=== PATIENT | female | born 1965 | race Caucasian/White ===

== ENCOUNTER 2018-01-31 13:57 | Emergency (ER) | payer MEDICAID, SELFPAY ==
[2018-01-31] VITALS (8 sets, daily range): BP systolic 142–150; BP diastolic 79–93; PULSE 98–108; RESP 16–24; TEMP 36.9; O2SAT 88–97; BMI 26.2
[2018-01-31] MEDS: Ipratropium/Albuterol Sulfate 3 ML AMPUL.NEB INHALATION (14:14)
[2018-01-31] MEDS: Albuterol 2.5 MG/3 ML VIAL.NEB. INHALATION ×3 (14:14→14:25)
[2018-01-31] MEDS: predniSONE 20 MG Tablet 60 MG PO (14:44)
--- NOTE | 2018-01-31 15:03 | RAD_ITS ---
STUDY: X-RAY CHEST REASON FOR EXAM: Female, 52 years old. Cough. Asthma. TECHNIQUE: PA and lateral views of the chest. COMPARISON: Comparison is made with prior study dated April 06, 2017. FINDINGS: EKG electrodes are seen. Hyperinflation. The lungs are clear. There is no demonstrated pleural abnormality. Normal size heart. Normal mediastinum and brandy. Normal visualized pulmonary arteries. Normal visualized aortic arch and descending thoracic aorta. There are degenerative changes of the visualized thoracic spine. Normal visualized ribs, clavicles, and shoulders. There is no demonstrated abnormality of the visualized soft tissue structures of the upper abdomen. RAD/Chest PA and Lateral IMPRESSION: Hyperinflation. The lungs are clear. Electronically Signed: Tobias Ramon MD at 15:26 EDT Tel [phone], Service support ,
--- NOTE | 2018-01-31 15:03 | EKG12_ITS ---
Test Reason : SOB Blood Pressure : / mmHG Vent. Rate : 100 BPM Atrial Rate : 100 BPM P-R Int : 144 ms QRS Dur : 082 ms QT Int : 350 ms P-R-T Axes : 079 037 064 degrees QTc Int : 451 ms Normal sinus rhythm Nonspecific ST and T wave abnormality Abnormal ECG Confirmed by MONET ECHEVARRIA ([id number]), editorial writer MARBELLA ENGLISH ([id number]) on 02/11/2018 6:31:58 PM Referred By: BRADEN Confirmed By:MONET ECHEVARRIA
--- NOTE | 2018-01-31 15:55 | ED.DCSUM_ITS ---
- ER Visit Summary Date of Service: 01/31/18 Chief Complaint: Shortness of breath History of Present Illness: The patient is a 52 F with a history of asthma. She is a smoker. Patient had waxing and waning shortness of breath for the past 3 days. This feels that her previous asthma flares. She does report cough and had slight pink tinged sputum yesterday that is now clear today. She has not had fever. She states her chest feels tight as if her lungs are tight. Physical Examination: Blood pressure is 144/84, temperature 98.4, heart rate 104 , respiratory rate 22, pulse ox 88% on room air. The time of my exam she is 92 % on 2 L nasal cannula. Head neck examination is grossly unremarkable. Heart is regular rate and rhythm. No lung sounds revealed decreased air movement throughout. Abdomen is soft nontender. Lower extremity examination was no calf tenderness or edema. Test Results: View chest x-ray reveals hyperinflation with no focal infiltrate. EKG is sinus at [address] change. Emergency Department Course and Treatment: She was given p.o. prednisone along with a cycle of aerosols. On repeat evaluation she is improved air movement throughout. She is taken off of her oxygen. Patient is ambulated down the more. Oxygen saturations maintained between 90 and 94%. She feels significantly improved. She be given a prednisone taper for home and a prescription for a new albuterol MDI as she states hers is almost empty. She still has plenty of albuterol solution for her nebulizer. Treatment Plan: [] Disposition: Discharge Impression: Asthma exacerbation This note was generated with [employer] dictation software. It may contain incorrect words, spelling, and punctuation that were not noted in review of the chart prior to signing ED Disposition - Plan for ED Patient: Chief Complaint: Asthma Referrals: Abdifatah Awad MD [Primary Care Provider] -
--- NOTE | 2018-01-31 16:17 | ED.DEP ---
ED Disposition - Plan for ED Patient: Disposition: Home or Assisted Living Chief Complaint: Asthma Instructions: ED Reactive Airway Disease Prescriptions: Albuterol Inhaler [Ventolin Hfa] 1 - 2 puff INHALATION Q4H PRN PRN #1 inhaler PRN Reason: Wheezing Prednisone 10 mg PO UD #33 tablet Referrals: Abdifatah Awad MD [Primary Care Provider] - 5-7 Days
--- NOTE | 2018-01-31 16:29 | ED.RN ---
THIS NURSE REVIEWED D/C INSTRUCTIONS WITH PT. PT VERBALIZED UNDERSTANDING OF INSTRUCTIONS. PT DENIES FURTHER NEEDS OR QUESTIONS AT THIS TIME. PT AMBULATES FROM ROOM ON OWN WITHOUT ASSISTANCE FROM STAFF
== END 2018-01-31 16:30 | disposition home or self-care (01) ==
PROVIDERS: Emergency Provider Emergency Medicine; Family Provider Family Medicine; PCP Family Medicine
DX: J45.901 Unspecified asthma with (acute) exacerbation (principal); F17.200 Nicotine dependence, unspecified, uncomplicated; F41.9 Anxiety disorder, unspecified; Z87.442 Personal history of urinary calculi; Z79.51 Long term (current) use of inhaled steroids; Z79.899 Other long term (current) drug therapy
CPT/HCPCS: 71046; 93005; 94640; 99284

== ENCOUNTER 2018-05-07 15:58 | Emergency (ER) | payer MEDICAID, SELFPAY ==
[2018-05-07 15:59] VITALS: BP 141/96; PULSE 85; RESP 18; TEMP 37.1; O2SAT 98; BMI 23.9
[2018-05-07] MEDS: LORazepam 1 MG Tablet PO (18:50)
--- NOTE | 2018-05-07 18:53 | ED.DCSUM_ITS ---
- ER Visit Summary Date of Service: 05/07/18 Chief Complaint: Panic attack History of Present Illness: The patient is a 52 F history of anxiety on both Xanax and Paxil. Patient is trying to wean her Xanax. Today had a panic attack. Physical Examination: Well-appearing middle-age female sitting in a hole here with her family. Vital signs are stable afebrile. Pulse ox 90% on room air no signs of hypoxia. No distress. H EENT exam unremarkable. Neck nontender. Lungs clear to auscultation bilaterally. Heart regular rate rhythm rate about 80 no murmurs. Abdomen is soft and nontender normal bowel sounds no peritoneal signs. Moving all 4 extremities. Neurovascularly intact. Calves nontender no edema. Neurologically awake alert no focal motor deficits. Test Results: None Emergency Department Course and Treatment: Treated with p.o. Ativan. Treatment Plan: Repeat exam doing well. Will be discharged to home. Continue current meds. Disposition: Discharge Impression: Acute panic attack History of anxiety This note was generated with [employer] dictation software. It may contain incorrect words, spelling, and punctuation that were not noted in review of the chart prior to signing ED Disposition - Plan for ED Patient: Chief Complaint: Anxiety Referrals: Abdifatah Awad MD [Primary Care Provider] -
--- NOTE | 2018-05-07 18:53 | ED.DEP ---
ED Disposition - Plan for ED Patient: Disposition: Home or Assisted Living Chief Complaint: Anxiety Instructions: ED Panic Attack Referrals: Abdifatah Awad MD [Primary Care Provider] - 1-2 Days if not improving
[2018-05-07 20:41] VITALS: BP 124/79; PULSE 83; RESP 16; O2SAT 100
--- NOTE | 2018-05-07 20:41 | ED.RN ---
THIS NURSE REVIEWED D/C INSTRUCTIONS WITH PT. PT VERBALIZED UNDERSTANDING OF INSTRUCTIONS. PT DENIES FURTHER NEEDS OR QUESTIONS AT THIS TIME. PT AMBULATES FROM DEPARTMENT ON OWN WITHOUT ASSISTANCE FROM STAFF
== END 2018-05-07 20:42 | disposition home or self-care (01) ==
PROVIDERS: Emergency Provider Emergency Medicine; Family Provider Family Medicine; PCP Family Medicine
DX: F41.0 Panic disorder [episodic paroxysmal anxiety] (principal); F41.9 Anxiety disorder, unspecified; Z72.0 Tobacco use; Z87.442 Personal history of urinary calculi; Z79.899 Other long term (current) drug therapy
CPT/HCPCS: 99282

== ENCOUNTER 2018-10-06 18:18 | Emergency (ER) | payer MEDICAID, SELFPAY ==
[2018-10-06 18:19] VITALS: BP 153/92; PULSE 116; RESP 18; TEMP 37.3; O2SAT 97; BMI 23.0
[2018-10-06 18:44] VITALS: O2SAT 99
--- NOTE | 2018-10-06 18:50 | RAD_ITS ---
STUDY: X-RAY CHEST REASON FOR EXAM: Female, 52 years old. Fever. TECHNIQUE: PA and lateral views of the chest. COMPARISON: January 31, 2018 FINDINGS: There is no new focal consolidation. Normal size heart. Normal mediastinum and brandy. Normal visualized pulmonary arteries. Normal visualized aortic arch and descending thoracic aorta. Normal visualized thoracic spine. Normal visualized ribs, clavicles, and shoulders. There is no demonstrated abnormality of the visualized soft tissue structures of the upper abdomen. RAD/Chest PA and Lateral IMPRESSION: No acute cardiopulmonary process. Electronically Signed: Catia Tellez MD at 19:48 EST Tel , Service support ,
--- NOTE | 2018-10-06 19:28 | ED.DCSUM_ITS ---
- ER Visit Summary Date of Service: 10/06/18 Chief Complaint: Cough History of Present Illness: The patient is a 52 F presenting with cough x 3 weeks. Patient states that she went to urgent care 1.5-2 weeks ago and was treated with multiple medications. She states she was given an inhaler, antibiotic, steroids, cough medicine. She states her symptoms started to improve. She states yesterday she started having worsening cough again. She has had subjective fever. She has had a dry cough. She denies other complaints. Physical Examination: Vitals are stable. Patient is afebrile. Alert no acute distress. HEENT exam is unremarkable. Neck is supple. Lungs are clear and equal bilaterally. Heart is regular rate and rhythm. Abdomen is soft nontender nondistended. Extremities are unremarkable. Skin is warm and dry. No focal neurologic deficit. Remainder of exam is unremarkable. Emergency Department Course and Treatment: Chest x-ray shows no acute process. She was given a prescription for Tessalon Perles. Advised to follow-up with her primary care physician. Advised return to ED for worsening complaints. Disposition: Discharge home Impression: Bronchitis This note was generated with [employer] dictation software. It may contain incorrect words, spelling, and punctuation that were not noted in review of the chart prior to signing ED Disposition - Plan for ED Patient: Disposition: Home or Assisted Living Instructions: ED Upper Resp Infec No Abx Tx Prescriptions: Benzonatate [Tessalon Perle] 200 mg PO TID PRN PRN #20 capsule PRN Reason: Cough Referrals: Abdifatah Awad MD [Primary Care Provider] -
[2018-10-06 20:56] VITALS: PULSE 90; RESP 15; O2SAT 96
== END 2018-10-06 20:57 | disposition home or self-care (01) ==
PROVIDERS: Emergency Provider Emergency Medicine; Family Provider Family Medicine; PCP Family Medicine
DX: J40 Bronchitis, not specified as acute or chronic (principal); F32.9 Major depressive disorder, single episode, unspecified; Z72.0 Tobacco use; Z79.51 Long term (current) use of inhaled steroids; Z79.52 Long term (current) use of systemic steroids; Z79.899 Other long term (current) drug therapy
CPT/HCPCS: 71046; 99282

== ENCOUNTER 2019-02-07 21:23 | Emergency (ER) | payer MEDICAID, SELFPAY ==
[2019-02-07 21:23] VITALS: BP 151/79; PULSE 129; RESP 24; TEMP 36.9; O2SAT 92; BMI 22.4
[2019-02-07 21:35] VITALS: PULSE 115; RESP 16
[2019-02-07] MEDS: Ipratropium/Albuterol Sulfate 3 ML AMPUL.NEB INHALATION (21:35)
[2019-02-07 21:55] VITALS: PULSE 116; RESP 20; O2SAT 95
--- NOTE | 2019-02-07 22:25 | RAD_ITS ---
STUDY: X-RAY CHEST REASON FOR EXAM: Female, 53 years old. Asthma attack, cough, shortness of breath TECHNIQUE: AP and lateral views of the chest. COMPARISON: 10/06/2018. 01/31/2018. FINDINGS: Stable hyperinflation and left perihilar calcified granuloma. Mild interstitial prominence. There is no demonstrated pleural abnormality. Normal size heart. Normal mediastinum and brandy. Normal visualized pulmonary arteries. Normal visualized aortic arch and descending thoracic aorta. Normal visualized thoracic spine. Normal visualized ribs, clavicles, and shoulders. There is no demonstrated abnormality of the visualized soft tissue structures of the upper abdomen. RAD/Chest PA and Lateral IMPRESSION: Stable hyperinflation. Possible mild interstitial/bronchial inflammation. No pulmonary edema, congestive heart failure or confluent pneumonia. Electronically Signed: Karen Washington MD at 23:11 EDT , Service support ,
--- NOTE | 2019-02-07 22:26 | ED.VIS.DYS ---
History of Present Illness Chief Complaint: Asthma Informant: Patient Onset: Today Activity at onset: - - grad onset Timing: Continuous Quality: Wheezing Current Severity: Moderate Maximum Severity: Moderate Worsened by: Coughing, Exertion Relieved by: Albuterol Associated Symptoms: Clear sputum. Negative for: Ear pain, Fever Chest Pain: Tightness Narrative: Feels like it has been flaring up. Roommate has had a cold, feels like she is getting it this morning, along with worsening wheezing throughout the day. Her albuterol inhaler was helping a little bit only very temporarily. Making her feel anxious. - Past Medical History (1) Asthma Status: Chronic Past Medical History - Allergies and Home Meds Allergies/Adverse Reactions: Allergies chlorpheniramine maleate [From Chlor-Trimeton] Allergy (Verified 10/06/18 18:19) Rash morphine Allergy (Verified 10/06/18 18:19) Itching strawberry Adverse Reaction (Verified 10/06/18 18:19) Rash Primary Care Physician: Abdifatah Awad MD [Primary Care Provider] - Lives: Roommate Smoking Status: Current every day smoker Review of Systems General: Denies: Chills, Fever Eyes: Denies: Visual changes - bilaterally, Diplopia ENT: Reports: Rhinorrhea. Denies: Bilateral ear pain, Sore throat Cardiovascular: Reports: Chest pain. Denies: Palpitations Respiratory: Reports: Dyspnea, Cough, Sputum, Dyspnea on exertion Gastrointestinal: Denies: Abdominal pain, Nausea, Vomiting, Diarrhea Musculoskeletal: Denies: Swelling, Extremity Pain Skin: Denies: Rash, Wounds Neurological: Denies: Weakness, Numbness Psych: Reports: Anxiety. Denies: Suicidal thoughts Physical Exam Vital Signs/Narrative: Vital Signs Temp Pulse Resp BP Pulse Ox 02/07/19 21:55 116 H 20 H 95 02/07/19 21:35 115 H 16 02/07/19 21:23 98.5 F 129 H 24 H 151/79 H 92 Inital Vital Signs reviewed: Yes General: Well nourished, Well developed, Acute Distress - Mild, respiratory. Speaking in 10 worsens this. Head: Normocephalic, Atraumatic Eyes: Perrl, EOMI ENT: Moist mucous membranes, No rhinorrhea Neck: Supple, Nontender Cardiovascular: Regular rate, Regular rhythm, No murmurs, Tachycardia Respiratory: Chest nontender, Wheezing - Slight, and expiratory Abdomen: Soft, Nontender, Nondistended, Normal bowel sounds Extremities: Nontender, No edema Skin: Normal color, No rash, No Trauma Neurological: Alert, Oriented x3, Cranial nerves II-XII grossly intact, Normal Strength, Normal Sensation, Normal Gait Psychological: Normal Mood, - - Anxious Diagnostic/Tx/Re-eval Chest X-Ray - ED: 2 View, Read by ED Physician, Read by Radiologist, Normal, Heart, Lungs, Mediastinum, Bony Structures, No Acute Disease Treatment - Dyspnea: Albuterol, Atrovent Repeat Evaluation: Improved - Medical Decision Making After a DuoNeb treatment, patient was not feeling that much better and was feeling anxious. She was given a couple more albuterol's and now is feeling much better. On reevaluation she still has inspiratory wheezes that are actually more prominent than they were before, indicating that she was pretty tight. She was offered more treatments but she declines and feels much better and wants to go home. She was given an injection of Kenalog 40 mg, she will not need a prescription for prednisone. Encouraged to return if worse. She is comfortable with the plan. ED Disposition - Plan for ED Patient: Disposition: Home or Assisted Living Diagnosis: Acute asthma exacerbation Instructions: ED Bronchitis Asthmatic, Triamcinolone Hexacetonide Suspension for injection Referrals: Abdifatah Awad MD [Primary Care Provider] - 3-5 Days if not improving
[2019-02-07] MEDS: Albuterol 2.5 MG/3 ML VIAL.NEB. INHALATION ×2 (22:34→22:35)
[2019-02-07 22:36] VITALS: PULSE 122; RESP 16
[2019-02-07] MEDS: Triamcinolone Acetonide 40 MG/ML Vial IM (23:18)
[2019-02-07 23:19] VITALS: PULSE 114; RESP 20; O2SAT 94
[2019-02-08 00:20] VITALS: BP 170/84; PULSE 117; RESP 18; O2SAT 94
== END 2019-02-08 00:21 | disposition home or self-care (01) ==
PROVIDERS: Emergency Provider Emergency Medicine; Family Provider Family Medicine; PCP Family Medicine
DX: J45.901 Unspecified asthma with (acute) exacerbation (principal); F17.200 Nicotine dependence, unspecified, uncomplicated; Z79.51 Long term (current) use of inhaled steroids
CPT/HCPCS: 71046; 94640; 96372; 99282

== ENCOUNTER 2019-04-03 17:48 | Emergency (ER) | payer MEDICAID, SELFPAY ==
[2019-04-03 17:49] VITALS: BP 161/93; PULSE 106; RESP 16; TEMP 36.9; O2SAT 97; BMI 20.6
--- NOTE | 2019-04-03 18:01 | ED.VISSUMM ---
- ER Visit Summary Date of Service: 04/03/19 Chief Complaint: Bilateral flank pain History of Present Illness: The patient is a 53 F presenting with bilateral flank pain. Patient states this started yesterday. She states she has a history of kidney stones and this feels similar. She has left greater than right low back pain. She noticed blood in her urine today. She states that she is also going through menopause and has had vaginal bleeding for the past month. She denies syncope. She denies chest pain or shortness of breath. Denies fever. Denies other complaints. Physical Examination: Vitals are stable. Patient is afebrile. Alert no acute distress. HEENT exam is unremarkable. Neck is supple. Lungs are clear and equal bilaterally. Heart is regular rate and rhythm. Abdomen is soft nontender nondistended. No guarding or rebound Back: Left CVA tenderness Extremities are unremarkable. Skin is warm and dry. No rash Remainder of exam is unremarkable. Emergency Department Course and Treatment: Patient was given IV Zofran, Toradol. CBC, chemistries unremarkable other than potassium 3.1. CT flank shows several nonobstructing left renal calculi measuring up to 7 mm. There is no evidence of hydronephrosis, hydroureter, or ureterolithiasis. Bilateral tubal ligation clips are noted. There are calcified plaques of the abdominal aorta. There are degenerative changes with disc space narrowing of the spine at the L5-S1 level. There is no evidence of free intra-abdominal or intrapelvic air, fluid, or inflammatory process. On reevaluation, patient is resting comfortably. She is advised to follow with primary care physician and [facility]. Advised return to ED for worsening complaints. Disposition: Discharge home Impression: Bilateral flank pain This note was generated with [employer] dictation software. It may contain incorrect words, spelling, and punctuation that were not noted in review of the chart prior to signing ED Disposition - Plan for ED Patient: Instructions: FLANK PAIN, Uncertain Cause Prescriptions: Naproxen [Naprosyn] 500 mg PO BID PRN #20 tab Prescription Printed Referrals: Aspen Mak MD [STAFF PHYSICIAN] - Abdifatah Awad MD [Primary Care Provider] -
[2019-04-03] MEDS: Ketorolac 30 MG/ML Syringe IV (18:18)
[2019-04-03] MEDS: 0.9% Normal Saline 1,000 ML 250 ML IV (18:18)
[2019-04-03] MEDS: Ondansetron 4 MG/2 ML Vial IV (18:18)
[2019-04-03 18:22] LABS: Absolute Lymphocyte Count 2.35 X10^3/uL (0.83-4.51); Absolute Neutrophil Count 7.3 X10^3/uL (2.0-7.7); Basophil# 0.05 X10^3/uL; Basophil% 0.5 % (0-1); Eosinophil# 0.08 X10^3/uL; Eosinophils% 0.8 % (0-5); Hematocrit 42.7 % (37-47); Hemoglobin 14.2 g/dL (12.0-15.0); Lymphocyte # 2.35 X10^3/ul (4.0); Lymphocyte % 22.3 % (19-41); Mean Corp Hgb Conc 33.3 g/dL (32-36); Mean Corpuscular Volume 87.1 fL (81-99); Mean Platelet Vol. 8.7 fl (6.2-12.0); Monocyte# 0.72 X10^3/uL; Monocyte% 6.8 % (0-10); NRBC Flagged by Analyzer 0 % (0-5); Neutrophil # 7.28 X10^3/uL (2.7-7.7); Neutrophil % 69.2 % (47-70); Platelet Count 347 K/mm3 (150-450); RBC Distribution Width CV 14.2 % (11.6-14.6); RBC Distribution Width SD 45.4 fl (35.1-43.9); White Blood Count 10.5 K/mm3 (4.4-11.0)
[2019-04-03 18:38] LABS: BUN 18 mg/dL (7-18); Calcium,Total 9.4 mg/dL (8.5-10.1); Chloride 105 mmol/L (98-107); EST Glomerular Filtration Rate 70 mL/min (>60); Est Glom Filt Rate - Afr Amer 85 mL/min (>60); Estimated Creatinine Clearance 63.63 ml/min; Glucose 104 mg/dL (74-106); Potassium 3.1 mmol/L (3.5-5.1); Sodium Level 138 mmol/L (136-145)
[2019-04-03 18:39] LABS: Anion Gap 6 (5-15)
[2019-04-03 18:54] LABS: Bacteria 0 SEEN /hpf (None Seen); Mucous, Urine 0 SEEN /hpf (<or=2+); Red Blood Cells-Urine 0 SEEN /hpf (0-5)
--- NOTE | 2019-04-03 18:56 | CT_ITS ---
STUDY: CT ABDOMEN AND PELVIS WITHOUT CONTRAST REASON FOR EXAM: Female, 53 years old. Right flank pain RADIATION DOSAGE (If Supplied By Facility): CTDIvol = ( 6.04 ) mGy, DLP = ( 264.24 ) mGycm TECHNIQUE: Transaxial images were obtained from the dome of the diaphragm to the symphysis pubis without oral contrast, and without intravenous contrast. Sagittal and coronal images were reconstructed. Individualized dose optimization techniques were used for this CT. COMPARISON: Prior study of 09/21/2017 FINDINGS: The visualized lung bases are unremarkable. The visualized portions of the heart are within normal limits. Normal liver. Normal gallbladder and extrahepatic biliary system. Normal spleen. Normal pancreas. Normal bilateral adrenal glands. Normal right kidney. There are several nonobstructing left renal calculi measuring up to 7 mm. Normal visualized stomach. Normal small intestine. Normal colon. The appendix is visualized and appears normal. There are calcified plaques of the abdominal aorta. Normal inferior vena cava. Normal retroperitoneum. Normal urinary bladder. There are bilateral tubal ligation clips. Normal abdominal wall. There are degenerative changes with disc space narrowing at the L5-S1 level. CT/Abdomen/Pelvis without Cont IMPRESSION: 1. Several nonobstructing left renal calculi measuring up to 7 mm. There is no evidence of hydronephrosis, hydroureter, or ureterolithiasis. 2. Bilateral tubal ligation clips are noted. 3. There are calcified plaques of the abdominal aorta. 4. There are degenerative changes with disc space narrowing of the spine at the L5-S1 level. 5. There is no evidence of free intra-abdominal or intrapelvic air, fluid, or inflammatory process. Electronically Signed: Rafita Becerra MD at 19:59 EDT , Service support ,
[2019-04-03 19:06] LABS: Color, Urine Yellow (Yellow); Glucose, Dipstick Normal (Normal); Ketone-Dipstick Negative (Negative); Leukocyte Esterase-Dipstick Negative /ul (Negative); Nitrite-Dipstick Negative (Negative); Occult Blood-Urine 50 /ul (Negative); Protein-Dipstick Negative (Negative); Urine Bilirubin Dipstick Negative (Negative); Urine Clarity Clear (Clear); Urine Urobilinogen Normal (Normal); Urine pH 6.5 (5.0 - 8.0)
[2019-04-03 20:07] LABS: Hyaline Cast 0-5 SEEN /lpf (0-5); Squamous Epithelial Cells - UA 0-5 SEEN /hpf (5-10); White Blood Cells 0-5 SEEN /hpf (0-5)
--- NOTE | 2019-04-03 20:18 | ED.DEP ---
ED Disposition - Plan for ED Patient: Instructions: FLANK PAIN, Uncertain Cause Prescriptions: Naproxen [Naprosyn] 500 mg PO BID PRN #20 tablet Referrals: Abdifatah Awad MD [Primary Care Provider] - Aspen Mak MD [STAFF PHYSICIAN] -
[2019-04-03 20:21] VITALS: BP 155/83; PULSE 74; RESP 16; TEMP 36.8; O2SAT 98
== END 2019-04-03 20:32 | disposition home or self-care (01) ==
LOC: ED 18:12
PROVIDERS: Emergency Provider Emergency Medicine; Family Provider Family Medicine; PCP Family Medicine
DX: R10.9 Unspecified abdominal pain (principal); Z87.442 Personal history of urinary calculi; J45.909 Unspecified asthma, uncomplicated; Z72.0 Tobacco use; Z79.899 Other long term (current) drug therapy
CPT/HCPCS: 74176; 80048; 81001; 85025; 96361; 96374; 96375; 99284; J7030; J2405

== ENCOUNTER 2019-04-24 15:12 | Emergency (ER) | payer OTHER, MEDICAID, SELFPAY ==
[2019-04-24 15:14] VITALS: BP 149/89; PULSE 81; RESP 18; TEMP 37; O2SAT 97; BMI 22.3
--- NOTE | 2019-04-24 16:37 | CT_ITS ---
STUDY: CT BRAIN WITHOUT CONTRAST REASON FOR EXAM: Female, 53 years old. Posttraumatic headache and blurred vision RADIATION DOSAGE (If Supplied By Facility): CTDIvol = ( 60.81 ) mGy, DLP = ( 998.67 ) mGycm TECHNIQUE: Transaxial CT imaging of the brain was performed without administration of intravenous contrast material. Individualized dose optimization techniques were used for this CT. COMPARISON: July 09, 2017. FINDINGS: Normal soft tissue structures. Normal calvarium. Normal size ventricles and extra-axial spaces for the patient's age. Normal white matter tracts of the cerebral hemispheres. Normal basal ganglia and thalami. Normal brainstem. Normal cerebellum. There is no intracranial hemorrhage. There are no findings of an acute ischemic infarction. Minor mucosal thickening in left ethmoid air cells and right maxillary sinus.. No significant change since prior study CT/Brain/Head without Contrast IMPRESSION: Normal unenhanced CT scan of the brain. Electronically Signed: Oren Interiano MD at 17:11 EDT , Service support ,
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
--- NOTE | 2019-04-24 17:30 | ED.DEP ---
ED Disposition - Plan for ED Patient: Disposition: Home or Assisted Living Instructions: FACIAL CONTUSION, No Wakeup Referrals: Abdifatah Awad MD [Primary Care Provider] -
[2019-04-24 18:02] VITALS: BP 147/8; PULSE 79; RESP 16; O2SAT 99
== END 2019-04-24 18:03 | disposition home or self-care (01) ==
LOC: ED 17:59
PROVIDERS: Emergency Provider Emergency Medicine; Family Provider Family Medicine; PCP Family Medicine
DX: S00.83XA Contusion of other part of head, initial encounter (principal); J45.909 Unspecified asthma, uncomplicated; F41.9 Anxiety disorder, unspecified; F29 Unspecified psychosis not due to a substance or known physiological condition; Z87.442 Personal history of urinary calculi; Z79.51 Long term (current) use of inhaled steroids; Z79.899 Other long term (current) drug therapy; W20.8XXA Other cause of strike by thrown, projected or falling object, initial encounter; Y93.89 Activity, other specified; Y92.89 Other specified places as the place of occurrence of the external cause; Y99.0 Civilian activity done for income or pay
CPT/HCPCS: 70450; 99283

== ENCOUNTER 2019-06-16 08:47 | Emergency (ER) | payer MEDICAID, SELFPAY ==
[2019-06-16 08:47] VITALS: BP 180/99; PULSE 92; RESP 18; TEMP 36.6; O2SAT 98; BMI 22.3
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
[2019-06-16] MEDS: Ketorolac 15 MG/ML Vial IV (09:37)
[2019-06-16 09:43] VITALS: BP 187/97; PULSE 74; RESP 16; O2SAT 96
--- NOTE | 2019-06-16 09:46 | RAD_ITS ---
STUDY: X-RAY - BILATERAL RIBS WITH CHEST REASON FOR EXAM: Female, 53 years old. Worsening left lower rib pain following a fall. TECHNIQUE - RIBS: 3 view(s) of the ribs. TECHNIQUE - CHEST: Single PA view of the chest. COMPARISON: None. FINDINGS - RIBS : Normal visualized ribs without a demonstrated fracture. FINDINGS - CHEST: Hyperinflation. There is no demonstrated pleural abnormality. Normal size heart. Normal mediastinum and brandy. Normal visualized pulmonary arteries. Normal visualized aortic arch and descending thoracic aorta. Normal visualized thoracic spine. Normal visualized ribs, clavicles, and shoulders. There is no demonstrated abnormality of the visualized soft tissue structures of the upper abdomen. RAD/Ribs Gilles Min 4V w/PA Chest IMPRESSION: RIBS: Hyperinflation. CHEST: Normal x-ray examination of the chest. Electronically Signed: Tobias Ramon, at 10:25 EDT , Service support ,
== END 2019-06-16 11:13 | disposition home or self-care (01) ==
PROVIDERS: Emergency Provider Emergency Medicine; Family Provider Family Medicine; PCP Family Medicine
DX: S20.219A Contusion of unspecified front wall of thorax, initial encounter (principal); W07.XXXA Fall from chair, initial encounter; Y93.I9 Activity, other involving external motion; Y92.811 Bus as the place of occurrence of the external cause; Y99.8 Other external cause status; J45.909 Unspecified asthma, uncomplicated; F17.200 Nicotine dependence, unspecified, uncomplicated
CPT/HCPCS: 71111; 96374; A4216

== ENCOUNTER 2019-06-16 19:48 | Emergency (ER) | payer MEDICAID, SELFPAY ==
[2019-06-16 08:47] VITALS: BMI 22.3
[2019-06-16 19:49] VITALS: BP 136/81; PULSE 81; PULSE 84; RESP 18; TEMP 36.8; O2SAT 97; BMI 22.3
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
[2019-06-16] MEDS: diazePAM 5 MG Tablet PO (21:40)
[2019-06-16] MEDS: Ondansetron 4 MG/2 ML Vial IV (21:46)
[2019-06-16] MEDS: HYDROmorphone 1 MG/ML Syringe 0.5 MG IV (21:46)
[2019-06-16 22:39] VITALS: BP 127/70; PULSE 80; RESP 14; O2SAT 98
== END 2019-06-16 22:49 | disposition home or self-care (01) ==
PROVIDERS: Emergency Provider Emergency Medicine; Family Provider Family Medicine; PCP Family Medicine
DX: M62.838 Other muscle spasm (principal); S20.219D Contusion of unspecified front wall of thorax, subsequent encounter; S20.219A Contusion of unspecified front wall of thorax, initial encounter; J45.909 Unspecified asthma, uncomplicated; F17.200 Nicotine dependence, unspecified, uncomplicated; W07.XXXA Fall from chair, initial encounter; Y92.811 Bus as the place of occurrence of the external cause; Y99.8 Other external cause status; Y93.I9 Activity, other involving external motion
CPT/HCPCS: 71111; 96374; 96375; 99283; 99285; A4216; J2405

== ENCOUNTER → 2020-02-04 | Outpatient (CLI) | payer MEDICAID, SELFPAY ==
[2020-02-04 17:29] LABS: D-Dimer Quantitative (DVT/PE) <= 0.27 FEU/ug/m (0.27-0.49)
== END | disposition home or self-care (01) ==
LOC: LABSPEC 16:19
PROVIDERS: PCP Family Medicine; Referring Provider Family Medicine; Visit Provider Family Medicine
DX: R07.9 Chest pain, unspecified (principal)
CPT/HCPCS: 85379

== ENCOUNTER → 2020-05-25 | Outpatient (CLI) | payer MEDICAID, SELFPAY ==
--- NOTE | 2020-05-25 15:47 | STRESSREP ---
Stress Test Report Date: 05-25-2020 Procedure: Exercise tolerance test Indications: Chest pain Consent: Per the patient Procedure: The patient exercised on a Irving protocol for 2 minutes and 45 seconds completing not completing Stage I achieving a peak heart rate of 134 bpm (79% predicted maximal heart rate) with a peak blood pressure 150/94 mmHg and a peak MET capacity of approximately 4 MET's. The baseline ECG demonstrated normal sinus rhythm; low voltage QRS; septal DC of indeterminate age cannot be excluded. The peak exercise ECG demonstrated somatic/motion artifact with no obvious ECG changes at the heart rate achieved. There were no cardiac dysrhythmias pretest, during exercise, or recovery. The functional capacity was considered decreased. The patient had no complaint of chest discomfort during exercise or recovery. The examination was discontinued secondary to chest discomfort, dyspnea, unable to walk on the treadmill. Impression: 1. Technically inadequate (percent predicted maximal heart rate less than 85%) exercise tolerance test 2. Peak exercise ECG with somatic/motion artifact with no obvious ECG changes at the heart rate achieved 3. There were no cardiac dysrhythmias during exercise or recovery This note was generated with [employer] software. It may contain incorrect words, spelling, and punctuation that were not noted in checking the note before signing.
== END | disposition home or self-care (01) ==
PROVIDERS: PCP Family Medicine; Referring Provider Family Medicine; Visit Provider Family Medicine
DX: R07.9 Chest pain, unspecified (principal)
CPT/HCPCS: 93017

== ENCOUNTER 2020-07-20 09:52 | Emergency (ER) | payer MEDICAID, SELFPAY ==
[2020-07-20 09:53] VITALS: BP 109/93; PULSE 108; RESP 16; TEMP 36.7; O2SAT 97; BMI 20.6
--- NOTE | 2020-07-20 10:16 | ED.DCSUM_ITS ---
History of Present Illness Chief Complaint: General Illness Informant: Patient Narrative: Patient states that being on Sunday she was having intermittent abdominal pain. On Sunday she had emesis x1 and developed diarrhea. She states the diarrhea resolved yesterday. She has been left feeling worn down, headache, lower back pain. No fever cough shortness of breath. No rashes. - Past Medical History (1) Asthma Status: Chronic Past Medical History - Allergies and Home Meds Allergies/Adverse Reactions: Allergies chlorpheniramine maleate [From Chlor-Trimeton] Allergy (Verified 06/16/19 19:49) Rash morphine Allergy (Verified 06/16/19 19:49) Itching strawberry Adverse Reaction (Verified 06/16/19 19:49) Rash Primary Care Physician: Abdifatah Awad MD [Primary Care Provider] - Prior records reviewed: Yes Surgical History: noncontributory Lives: With Family Smoking Status: Current every day smoker Drugs: None Review of Systems General: Reports: Malaise. Denies: Chills, Fever, Sweats Eyes: Denies: Visual changes - bilaterally, Diplopia ENT: Denies: Rhinorrhea, Sore throat Cardiovascular: Denies: Chest pain, Palpitations Respiratory: Denies: Dyspnea, Cough, Dyspnea on exertion Gastrointestinal: Reports: Abdominal pain, Nausea, Vomiting, Diarrhea. Denies: Constipation, Melena, Hematochezia Genitourinary: Denies: Dysuria, Hematuria, Frequency Musculoskeletal: Reports: Myalgias, Back pain. Denies: Extremity Pain Skin: Denies: Rash, Wounds Neurological: Reports: Headache. Denies: Weakness, Numbness Physical Exam Vital Signs/Narrative: Vital Signs Temp Pulse Resp BP Pulse Ox 07/20/20 09:53 98.1 F 108 H 16 109/93 H 97 Inital Vital Signs reviewed: Yes General: Well nourished, Well developed, No Acute Distress Head: Normocephalic, Atraumatic Eyes: Perrl, EOMI ENT: No rhinorrhea, Dry mucous membranes Neck: Supple, Nontender Cardiovascular: Regular rate, No murmurs, Tachycardia Respiratory: No distress, CTA bilaterally, Chest nontender Abdomen: Soft, Nontender, Nondistended, Normal bowel sounds Back: Nontender, Normal Inspection Extremities: Nontender, No edema Skin: Normal color, No rash Neurological: Alert, Oriented x3, Cranial nerves II-XII grossly intact, Normal Strength, Normal Sensation Psychological: Normal affect, Normal Mood Diagnostic/Tx/Re-eval Clinical Impression(s) from Imaging Studies Abdomen/Pelvis CT 07/20/20 10:59 IMPRESSION: Findings in keeping with enteritis as described. Electronically Signed: Tobias Ramon, at 11:29 EST , Service support , Laboratory Last Values WBC 12.4 K/mm3 (4.4-11.0) H 07/20/20 10:30 RBC 5.60 M/mm3 (4.2-5.4) H 07/20/20 10:30 Hgb 16.0 g/dL (12.0-15.0) H 07/20/20 10:30 Hct 48.1 % (37-47) H 07/20/20 10:30 MCV 85.9 fL (81-99) 07/20/20 10:30 MCH 28.6 pg (27.0-32.0) 07/20/20 10:30 MCHC 33.3 g/dL (32-36) 07/20/20 10:30 RDW Std Deviation 43.2 fl (35.1-43.9) 07/20/20 10:30 RDW Coeff of Daljit 13.8 % (11.6-14.6) 07/20/20 10:30 Plt Count 343 K/mm3 (150-450) 07/20/20 10:30 MPV 8.9 fl (6.2-12.0) 07/20/20 10:30 Immature Gran % (Auto) 0.400 % (0.0-0.9) 07/20/20 10:30 Neut % (Auto) 68.7 % (47-70) 07/20/20 10:30 Lymph % (Auto) 22.9 % (19-41) 07/20/20 10:30 Terry % (Auto) 6.6 % (0-10) 07/20/20 10:30 Eos % (Auto) 0.8 % (0-5) 07/20/20 10:30 Baso % (Auto) 0.6 % (0-1) 07/20/20 10:30 Absolute Neuts (auto) 8.5 X10^3/uL (2.0-7.7) H 07/20/20 10:30 Absolute Lymphs (auto) 2.85 X10^3/uL (0.83-4.51) 07/20/20 10:30 Nucleated RBC % 0 % (0-5) 07/20/20 10:30 Sodium 139 mmol/L (136-145) 07/20/20 10:30 Potassium 3.3 mmol/L (3.5-5.1) L 07/20/20 10:30 Chloride 105 mmol/L (98-107) 07/20/20 10:30 Carbon Dioxide 28.0 mmol/L (21.0-32.0) 07/20/20 10:30 Anion Gap 6 (5-15) 07/20/20 10:30 BUN 26 mg/dL (7-18) H 07/20/20 10:30 Creatinine 1.19 mg/dL (0.55-1.02) H 07/20/20 10:30 Estim Creat Clear Calc 49.10 ml/min 07/20/20 10:30 Est GFR (MDRD) Af Amer 61 mL/min (>60) 07/20/20 10:30 Est GFR (MDRD) Non-Af 51 mL/min (>60) L 07/20/20 10:30 BUN/Creatinine Ratio 21.8 RATIO (10-20) H 07/20/20 10:30 Glucose 134 mg/dL (74-106) H 07/20/20 10:30 Calcium 10.0 mg/dL (8.5-10.1) 07/20/20 10:30 Total Bilirubin 0.50 mg/dL (0.20-1.00) 07/20/20 10:30 AST 14 U/L (15-37) L 07/20/20 10:30 ALT 23 U/L (13-56) 07/20/20 10:30 Alkaline Phosphatase 109 U/L (45-117) 07/20/20 10:30 Total Protein 8.1 g/dL (6.4-8.2) 07/20/20 10:30 Albumin 4.0 g/dL (3.2-5.0) 07/20/20 10:30 Globulin 4.1 g/dL (2.2-4.2) 07/20/20 10:30 Albumin/Globulin Ratio 1.0 RATIO (0.9-2.4) 07/20/20 10:30 Lipase 45 U/L (73-393) L 07/20/20 10:30 Urine Color Yellow (Yellow) 07/20/20 11:20 Urine Clarity Sl. Cloudy (Clear) 07/20/20 11:20 Urine pH 6.0 (5.0 - 8.0) 07/20/20 11:20 Ur Specific [place] 1.020 (1.002-1.030) 07/20/20 11:20 Urine Protein 30 mg/dl (Negative) H 07/20/20 11:20 Urine Glucose (UA) Normal mg/dl (Normal) 07/20/20 11:20 Urine Ketones 5 mg/dl (Negative) H 07/20/20 11:20 Urine Occult Blood 25 /ul (Negative) H 07/20/20 11:20 Urine Nitrite Negative (Negative) 07/20/20 11:20 Urine Bilirubin Negative mg/dL (Negative) 07/20/20 11:20 Urine Urobilinogen Normal mg/dl (Normal) 07/20/20 11:20 Ur Leukocyte Esterase 100 /ul (Negative) H 07/20/20 11:20 Urine RBC 0 SEEN /hpf (0-5) 07/20/20 11:20 Urine WBC 5-10 SEEN /hpf (0-5) 07/20/20 11:20 Ur Squamous Epith Cells 25-50 SEEN /hpf (5-10) 07/20/20 11:20 Amorphous Sediment 2+ 07/20/20 11:20 Urine Bacteria 1+ /hpf (None Seen) 07/20/20 11:20 Urine Mucus 0 SEEN /hpf (<or=2+) 07/20/20 11:20 - Medical Decision Making She will have an outpatient Covid test sent. I believe her history physical lab and CT findings are consistent more with a gastroenteritis. She received a lit er of IV fluids as I believe based on her labs and physical she has a mild dehydration. Write for some nausea medication to have at home. Patient was advised to orally hydrate. Return if worsening or concerns. ED Disposition - Plan for ED Patient: Disposition: Home or Assisted Living Diagnosis: Gastroenteritis Instructions: ED Viral Gastroenteritis Prescriptions: Ondansetron [Zofran Odt] 4 mg PO Q6H PRN PRN #20 tab PRN Reason: Nausea Prescription Printed Referrals: Abdifatah Awad MD [Primary Care Provider] - As Needed
[2020-07-20 10:37] LABS: Absolute Lymphocyte Count 2.85 X10^3/uL (0.83-4.51); Absolute Neutrophil Count 8.5 X10^3/uL (2.0-7.7); Basophil# 0.08 X10^3/uL; Basophil% 0.6 % (0-1); Eosinophils% 0.8 % (0-5); Hematocrit 48.1 % (37-47); Lymphocyte # 2.85 X10^3/ul (4.0); Lymphocyte % 22.9 % (19-41); Mean Corp Hgb Conc 33.3 g/dL (32-36); Mean Corpuscular Hgb 28.6 pg (27.0-32.0); Mean Corpuscular Volume 85.9 fL (81-99); Mean Platelet Vol. 8.9 fl (6.2-12.0); Monocyte# 0.82 X10^3/uL; Monocyte% 6.6 % (0-10); NRBC Flagged by Analyzer 0 % (0-5); Neutrophil # 8.54 X10^3/uL (2.7-7.7); Neutrophil % 68.7 % (47-70); Platelet Count 343 K/mm3 (150-450); RBC Distribution Width CV 13.8 % (11.6-14.6); RBC Distribution Width SD 43.2 fl (35.1-43.9); White Blood Count 12.4 K/mm3 (4.4-11.0)
[2020-07-20 10:54] LABS: AST(SGOT) 14 U/L (15-37); Alanine Aminotransfer ALT/SGPT 23 U/L (13-56); Alkaline Phosphatase 109 U/L (45-117); Anion Gap 6 (5-15); BUN 26 mg/dL (7-18); BUN/Creat Ratio 21.8 RATIO (10-20); Chloride 105 mmol/L (98-107); Creatinine, Serum 1.19 mg/dL (0.55-1.02); EST Glomerular Filtration Rate 51 mL/min (>60); Est Glom Filt Rate - Afr Amer 61 mL/min (>60); Globulin 4.1 g/dL (2.2-4.2); Glucose 134 mg/dL (74-106); Lipase 45 U/L (73-393); Potassium 3.3 mmol/L (3.5-5.1); Protein, Total 8.1 g/dL (6.4-8.2); Sodium Level 139 mmol/L (136-145)
--- NOTE | 2020-07-20 10:59 | CT_ITS ---
STUDY: CT ABDOMEN AND PELVIS WITH CONTRAST REASON FOR EXAM: Female, 54 years old. TORRES, BODY ACHES, ABD PAIN, N/V/D, WEAKNESS SINCE FRI. H/O [place], GERD. RADIATION DOSAGE (If Supplied By Facility): CTDIvol = ( 13.815 ) mGy, DLP = ( 357.07 ) mGycm TECHNIQUE: Transaxial images were obtained from the dome of the diaphragm to the symphysis pubis without oral contrast. IV 100mL Isovue-[id number] was administered. Sagittal and coronal images were reconstructed. Individualized dose optimization techniques were used for this CT. COMPARISON: Comparison is made with prior study dated 04/03/2019. FINDINGS: The visualized lung bases are unremarkable. The visualized portions of the heart are within normal limits. Normal liver. Normal gallbladder and extrahepatic biliary system. Normal spleen. Normal pancreas. Normal bilateral adrenal glands. Normal right kidney. Normal left kidney. Normal visualized stomach. Mild thickening of the small bowel loops with increased vascular enhancement. Enteritis should be ruled out. Normal colon. The appendix is visualized and appears normal. Normal abdominal aorta. Normal inferior vena cava. Normal retroperitoneum. Normal urinary bladder. Evidence of prior bilateral tubal ligation. Normal abdominal wall. Disc space narrowing and degeneration at the L5-S1 level. CT/Abdomen/Pelvis W IV Cont ONLY IMPRESSION: Findings in keeping with enteritis as described. Electronically Signed: Tobias Ramon, at 11:29 EST , Service support ,
[2020-07-20] MEDS: 0.9% Normal Saline 1,000 ML 1000 ML IV (11:18)
[2020-07-20] MEDS: Ondansetron 4 MG/2 ML Vial IV (11:18)
[2020-07-20] MEDS: Ketorolac 30 MG/ML Syringe IV (11:19)
[2020-07-20 11:23] VITALS: BP 120/76; PULSE 76; RESP 18; TEMP 37.1; O2SAT 97
[2020-07-20 11:28] LABS: Mucous, Urine 0 SEEN /hpf (<or=2+); Red Blood Cells-Urine 0 SEEN /hpf (0-5)
[2020-07-20 11:31] LABS: Color, Urine Yellow (Yellow); Glucose, Dipstick Normal (Normal); Ketone-Dipstick 5 mg/dl (Negative); Leukocyte Esterase-Dipstick 100 /ul (Negative); Nitrite-Dipstick Negative (Negative); Occult Blood-Urine 25 /ul (Negative); Protein-Dipstick 30 mg/dl (Negative); Urine Bilirubin Dipstick Negative (Negative); Urine Clarity Sl. Cloudy (Clear); Urine Urobilinogen Normal (Normal)
[2020-07-20 11:43] LABS: Amorphous Sediment 2+; Bacteria 1+ /hpf (None Seen); Squamous Epithelial Cells - UA 25-50 SEEN /hpf (5-10); White Blood Cells 5-10 SEEN /hpf (0-5)
== END 2020-07-20 12:57 | disposition home or self-care (01) ==
PROVIDERS: Emergency Provider Emergency Medicine; PCP Family Medicine
DX: K52.9 Noninfective gastroenteritis and colitis, unspecified (principal); J45.909 Unspecified asthma, uncomplicated; F17.200 Nicotine dependence, unspecified, uncomplicated; Z79.51 Long term (current) use of inhaled steroids
CPT/HCPCS: 74177; 80053; 81001; 83690; 85025; 96361; 96374; 96375; 99283; Q9967; A4216; J2405

== ENCOUNTER 2020-11-05 16:10 | Emergency (ER) | payer MEDICAID, SELFPAY ==
[2020-11-05 16:11] VITALS: BP 153/100; PULSE 86; RESP 17; TEMP 36.4; O2SAT 97; BMI 22.6
--- NOTE | 2020-11-05 16:29 | CT_ITS ---
STUDY: CT ABDOMEN AND PELVIS WITHOUT CONTRAST REASON FOR EXAM: Female, 55 years old. A kidney stone RADIATION DOSAGE (If Supplied By Facility): CTDIvol = ( 6.10 ) mGy, DLP = ( 2853.67 ) mGycm TECHNIQUE: Transaxial images were obtained from the dome of the diaphragm to the symphysis pubis without oral contrast, and without intravenous contrast. Sagittal and coronal images were reconstructed. Individualized dose optimization techniques were used for this CT. COMPARISON: 07/20/20 FINDINGS: Evaluation of the abdominal viscera is limited in the absence of intravenous contrast. The visualized lung bases are clear. The visualized portions of the heart and pericardium are within normal limits. There are no calcified gallstones present. The liver demonstrates an unremarkable unenhanced appearance. The spleen is normal in size. The pancreas demonstrates an unremarkable unenhanced appearance. The adrenal glands are within normal limits. There are subcentimeter nonobstructing left renal collecting system stones, measuring up to 7 mm. There are no right renal stones. There are no ureteral stones. There is no hydronephrosis. Normal visualized stomach. There is no bowel obstruction or inflammation. The appendix is visualized and appears normal. The aorta is normal in caliber. There is no abdominal or pelvic free air, free fluid, fluid collection or lymphadenopathy. There are bilateral tubal ligation clips noted. There are no destructive osseous lesions. CT/Abdomen/Pelvis without Cont IMPRESSION: Subcentimeter nonobstructing left renal collecting system stones. No additional urinary calculi. No hydronephrosis. No bowel obstruction or inflammation. Normal appendix. Electronically Signed: Mason Alberto MD at 17:13 EST Tel , Service support ,
--- NOTE | 2020-11-05 16:30 | ED.VISSUMM ---
- ER Visit Summary Date of Service: 11/05/20 Chief Complaint: Right flank pain History of Present Illness: The patient is a 55 F presenting with right flank pain. Patient states this started 2 days ago. She also has dysuria and urinary frequency. She has nausea with no vomiting. She has history of both kidney infection and kidney stones. She denies fever. She states she would also like to be tested for STDs. She denies any vaginal discharge or rash. Denies other complaints. Physical Examination: Vitals are stable. Patient is afebrile. Alert no acute distress. HEENT exam is unremarkable. Neck is supple. Lungs are clear and equal bilaterally. Heart is regular rate and rhythm. Abdomen is soft nontender nondistended. No guarding or rebound Back: Right CVA tenderness Extremities are unremarkable. Skin is warm and dry. Remainder of exam is unremarkable. Emergency Department Course and Treatment: Patient was given IV fluids, Zofran, Toradol. Urinalysis shows 25-50 white blood cells. hCG negative. GC chlamydia is pending. CT abdomen pelvis shows subcentimeter nonobstructing left renal collecting system stones. No additional urinary calculi. No hydronephrosis. No bowel obstruction or inflammation. Normal appendix. On reevaluation, patient is resting comfortably. She is given prescription for Bactrim and Zofran. Advised to follow-up with primary care physician. Advised return to ED for worsening complaints. Disposition: Discharge home Impression: Pyelonephritis This note was generated with [employer] dictation software. It may contain incorrect words, spelling, and punctuation that were not noted in review of the chart prior to signing ED Disposition - Plan for ED Patient: Instructions: ED Pyelonephritis, Female (Adult) Prescriptions: Smz/Tmp Ds [Bactrim Ds] 1 tab PO BID #20 tab Prescription Printed Ondansetron [Zofran Odt] 4 mg PO Q8H PRN PRN #10 tab PRN Reason: Nausea Prescription Printed Referrals: Abdifatah Awad MD [Primary Care Provider] -
[2020-11-05] MEDS: Ondansetron 4 MG/2 ML Vial IV (16:48)
[2020-11-05] MEDS: 0.9% Normal Saline 1,000 ML 999 ML IV (16:48)
[2020-11-05] MEDS: Ketorolac 30 MG/ML Syringe IV (16:48)
[2020-11-05 17:07] LABS: Mucous, Urine 0 SEEN /hpf (<or=2+)
[2020-11-05 17:14] LABS: Color, Urine Yellow (Yellow); Glucose, Dipstick Normal (Normal); Ketone-Dipstick Negative (Negative); Leukocyte Esterase-Dipstick 500 /ul (Negative); Nitrite-Dipstick Positive (Negative); Occult Blood-Urine 150 /ul (Negative); Protein-Dipstick 30 mg/dl (Negative); Specific Gravity, Urine 1.015 (1.002-1.030); Urine Bilirubin Dipstick Negative (Negative); Urine Clarity Sl. Cloudy (Clear); Urine Urobilinogen Normal (Normal)
[2020-11-05 17:19] LABS: Red Blood Cells-Urine 0-5 SEEN /hpf (0-5); White Blood Cells 25-50 SEEN /hpf (0-5)
[2020-11-05 17:20] LABS: Bacteria RARE /hpf (None Seen); Squamous Epithelial Cells - UA 0-5 SEEN /hpf (5-10)
--- NOTE | 2020-11-05 17:26 | ED.DEP ---
ED Disposition - Plan for ED Patient: Instructions: ED Pyelonephritis, Female (Adult) Prescriptions: Smz/Tmp Ds [Bactrim Ds] 1 tablet PO BID #20 tablet Ondansetron [Zofran Odt] 4 mg PO Q8H PRN PRN #10 tablet PRN Reason: Nausea Referrals: Abdifatah Awad MD [Primary Care Provider] -
[2020-11-05 18:01] LABS: Internal QC Validated? YES +Cl - CLEAR BKGD; Pregnancy, Urine Negative Negative
[2020-11-05] MEDS: Smz/Tmp Ds Tablet 1 TABLET PO (18:38)
[2020-11-05 18:42] VITALS: RESP 18
[2020-11-05 19:16] LABS: Chlamydia Trachomatis by PCR Negative (Negative); Neisserai gonorrhoeae by PCR Negative (Negative); Probe Check PASS; Sample Adequacy Control PASS; Specimen Processing Control PASS
== END 2020-11-05 18:45 | disposition home or self-care (01) ==
LOC: ED 17:14
PROVIDERS: Emergency Provider Emergency Medicine; PCP Family Medicine
DX: N12 Tubulo-interstitial nephritis, not specified as acute or chronic (principal); J45.909 Unspecified asthma, uncomplicated; Z87.442 Personal history of urinary calculi; Z72.0 Tobacco use; Z79.51 Long term (current) use of inhaled steroids
CPT/HCPCS: 74176; 81001; 81025; 87086; 87088; 87186; 87491; 87591; 96361; 96374; 96375; 99284; J7030; A4216; J2405

== ENCOUNTER 2021-05-18 13:59 | Emergency (ER) | payer MEDICAID, SELFPAY ==
[2021-05-18 14:00] VITALS: BP 135/74; PULSE 90; RESP 16; TEMP 36.3; O2SAT 97; BMI 23.3
[2021-05-18 15:32] LABS: Absolute Neutrophil Count 5.6 X10^3/uL (2.0-7.7); Basophil# 0.06 X10^3/uL; Basophil% 0.6 % (0-1); Eosinophil# 0.21 X10^3/uL; Eosinophils% 2.2 % (0-5); Hematocrit 41.8 % (37-47); Hemoglobin 12.8 g/dL (12.0-15.0); Lymphocyte % 29.9 % (19-41); Mean Corp Hgb Conc 30.6 g/dL (32-36); Mean Platelet Vol. 8.5 fl (6.2-12.0); Monocyte# 0.71 X10^3/uL; Monocyte% 7.6 % (0-10); NRBC Flagged by Analyzer 0 % (0-5); Neutrophil # 5.57 X10^3/uL (2.7-7.7); Neutrophil % 59.4 % (47-70); Platelet Count 383 K/mm3 (150-450); RBC Distribution Width CV 14.4 % (11.6-14.6); RBC Distribution Width SD 44.2 fl (35.1-43.9); Red Blood Count 4.92 M/mm3 (4.2-5.4); White Blood Count 9.4 K/mm3 (4.4-11.0)
[2021-05-18 15:39] LABS: Anion Gap 7 (5-15); BUN 18 mg/dL (7-18); BUN/Creat Ratio 19.7 RATIO (10-20); Calcium,Total 9.9 mg/dL (8.5-10.1); Chloride 105 mmol/L (98-107); Creatinine, Serum 0.92 mg/dL (0.55-1.02); EST Glomerular Filtration Rate 68 mL/min (>60); Est Glom Filt Rate - Afr Amer 83 mL/min (>60); Glucose 105 mg/dL (74-106); Potassium 3.8 mmol/L (3.5-5.1); Sodium Level 140 mmol/L (136-145)
--- NOTE | 2021-05-18 16:32 | EX.ED.DYSGE1 ---
HPI History of Present Illness Chief Complaint: GI Bleed Narrative Narrative: Patient presents with multiple complaints, she has some upper airway congestion sinus pain, her asthma is acting out, she is worried about Covid, she has nausea vomiting diarrhea as well as some bright red blood per rectum mixed in with the diarrheal illness. She has generalized weakness. She is denying chest pain. She is worried because she has been in contact with people with Covid. [facility] Medical History (Updated 05/18/21 @ 18:[address] Chu Pennington MD) Anxiety Depression Home Medications paroxetine HCl 40 mg PO DAILY 12/02/13 [History Last Taken Unknown] albuterol sulfate [Ventolin HFA] 1 - 2 puff INHALATION Q4H PRN PRN #1 inhaler 01/31/18 [Rx Last Taken Unknown] albuterol sulfate 2.5 mg INHALATION Q4H PRN PRN 02/07/19 [History Last Taken Unknown] alprazolam 0.5 mg PO DAILY PRN 02/07/19 [History Last Taken Unknown] loratadine 10 mg PO DAILY 02/07/19 [History Last Taken Unknown] trazodone 50 mg PO QHS 04/03/19 [History Last Taken Unknown] ibuprofen 800 mg PO TID PRN 06/16/19 [History Last Taken Unknown] ondansetron 4 mg PO Q8H PRN PRN #10 tab 11/05/20 [Rx Last Taken Unknown] sulfamethoxazole-trimethoprim 1 tab PO BID #20 tab 11/05/20 [Rx Last Taken Unknown] tiotropium bromide 18 mcg IH DAILY 11/05/20 [History Last Taken Unknown] Allergy/AdvReac Type Severity Reaction Status Date / Time chlorpheniramine maleate Allergy Rash Verified 11/05/20 16:10 [From Chlor-Trimeton] morphine Allergy Itching Verified 11/05/20 16:10 strawberry AdvReac Rash Verified 11/05/20 16:10 Social History Smoking Status: Former smoker ROS ROS ED ROS Narrative Past medical history: Reviewed, consistent with asthma, seasonal allergies. Medications: Reviewed Social history: Noncontributory Review of systems: All systems negative except as indicated General: No fever Eyes: No visual changes ENT: Upper airway congestion, rhinorrhea. Neck: No neck pain Cardiovascular: No chest pain Respiratory: No shortness of breath. She has a cough that is nonproductive. Gastrointestinal: Some slight generalized abdominal cramping that is intermittent. Bloody diarrhea as in HPI Genitourinary: No dysuria Skin: No rash Musculoskeletal: Some myalgias Neurological: No memory loss, confusion or any focal weakness Psych: No recent behavioral changes Hematologic: No easy bleeding or easy bruising EXAM Physical Exam Narrative Exam Narrative: Physical exam General: Well nourished, Well developed, No Acute Distress Head: Normocephalic, Atraumatic Eyes: Conjunctiva not pale ENT: Moist mucous membranes. Some rhinorrhea and nasal congestion. Neck: Supple, Nontender, No lymphadenopathy Cardiovascular: Regular rate, Regular rhythm Respiratory: No distress, CTA bilaterally Abdomen: Soft, currently she does not have abdominal pain she is pointing to the lower abdomen as most of the source of pain. She has a very benign exam as I palpate in all 4 quadrants. Rectal: Stool is brown, she has an external hemorrhoid but it is not bleeding or thrombosed. Back: Nontender, Normal Inspection. Negative for: CVA tenderness Extremities: Nontender, No edema Skin: Normal color, No rash Neurological: Alert, Normal Strength, Normal Sensation Psychological: Normal affect Const Vital Signs: 05/18/21 14:00 05/18/21 17:06 Temperature 97.3 F L Temperature Source Temporal Pulse Rate 90 84 Respiratory Rate 16 16 Blood Pressure 135/74 H 138/69 H Blood Pressure Mean 94 92 Pulse Ox 97 97 Oxygen Delivery Method Room Air Room Air MDM MDM MDM Narrative Medical decision making narrative: Patient appears well, she has a normal hemoglobin, she has bloody diarrhea, this is likely a self-limiting illness. If anything changes she is to return in the meantime I will refer her to GI. She did want a Covid test and this was ordered. Lab Data Labs: Laboratory Results - last 24 hr 05/18/21 05/18/21 15:20 15:20 WBC 9.4 RBC 4.92 Hgb 12.8 Hct 41.8 MCV 85.0 MCH 26.0 L MCHC 30.6 L RDW Std Deviation 44.2 H RDW Coeff of Daljit 14.4 Plt Count 383 MPV 8.5 Immature Gran % (Auto) 0.300 Neut % (Auto) 59.4 Lymph % (Auto) 29.9 [place] % (Auto) 7.6 Eos % (Auto) 2.2 Baso % (Auto) 0.6 Absolute Neuts (auto) 5.6 Absolute Lymphs (auto) 2.80 Nucleated RBC % 0 Sodium 140 Potassium 3.8 Chloride 105 Carbon Dioxide 28.0 Anion Gap 7 BUN 18 Creatinine 0.92 Estim Creat Clear Calc 58.50 Est GFR (MDRD) Af Amer 83 Est GFR (MDRD) Non-Af 68 BUN/Creatinine Ratio 19.7 Glucose 105 Calcium 9.9 Discharge Plan Triage Chief Complaint: GI Bleed ED Provider: Chu Pennington Dx/Rx/DC Orders Clinical Impression: Bloody diarrhea Instructions: ED Diarrhea, Unknown Cause Prescriptions: No Action paroxetine HCl 20 MG tablet 40 mg PO DAILY RF: 0 albuterol sulfate [Ventolin HFA] 1 INHALER inhaler 1 - 2 puff inhalation Q4H PRN PRN (Reason: Wheezing) Qty: 1 RF: 0 albuterol sulfate 2.5 MG/3 ML Vial.Neb. 2.5 mg inhalation Q4H PRN PRN (Reason: Sob &/Or Wheezing) RF: 0 alprazolam 0.5 tablet 0.5 mg PO DAILY PRN (Reason: Anxiety) RF: 0 loratadine 10 MG tablet 10 mg PO DAILY RF: 0 trazodone 50 MG tablet 50 mg PO QHS RF: 0 ibuprofen 800 MG tablet 800 mg PO TID PRN (Reason: Pain/Inflammation) RF: 0 tiotropium bromide 18 MCG capsule, w/inhalation device 18 mcg IH DAILY RF: 0 sulfamethoxazole-trimethoprim 1 TABLET tablet 1 tab PO BID Qty: 20 RF: 0 ondansetron 4 MG tablet 4 mg PO Q8H PRN PRN (Reason: Nausea) Qty: 10 RF: 0 Primary Care Provider: Abdifatah Awad Referrals: Artem Awad MD [NON-STAFF] - 3-5 Days Abdifatah Awad MD [Primary Care Provider] - Disposition Disposition: Home, Self Care
[2021-05-18 17:06] VITALS: BP 138/69; PULSE 84; RESP 16; O2SAT 97
== END 2021-05-18 18:25 | disposition home or self-care (01) ==
PROVIDERS: Emergency Provider Emergency Medicine; PCP Family Medicine
DX: K92.1 Melena (principal); F41.9 Anxiety disorder, unspecified; F32.9 Major depressive disorder, single episode, unspecified; J45.909 Unspecified asthma, uncomplicated; Z79.51 Long term (current) use of inhaled steroids; Z79.899 Other long term (current) drug therapy; Z87.891 Personal history of nicotine dependence; Z20.822 Contact with and (suspected) exposure to COVID-19
CPT/HCPCS: 80048; 83630; 85025; 87426; 99283; A4216

== ENCOUNTER 2024-02-19 14:14 | Emergency (ER) | payer MEDICAID, SELFPAY ==
[2024-02-19 14:17] VITALS: BP 144/102; PULSE 95; RESP 18; TEMP 36.2; O2SAT 96
--- NOTE | 2024-02-19 14:31 | EX.ED.DYSGE1 ---
HPI History of Present Illness Chief Complaint: Other, Pain/Inj Detail of Chief Complaint: Left-sided lower chest pain Informant: patient Onset/Context/Timing Onset: Yesterday Context: Sudden Onset Timing: Intermittent Quality: Pain Location: Midclavicular line eighth ninth rib to the posterior axillary line Current Severity: Mild Maximum Severity: Moderate Worsened by: Movement, cough, breathing Relieved by: Remaining still and not breathing Associated Symptoms Associated Symptoms: No constitutional symptoms, GI symptoms or urologic symptoms. Narrative Narrative: Patient is a 58-year-old woman with history of asthma who is a non-smoker who presents with intermittent pleuritic acute left-sided pain that started yesterday. There is no known history of trauma. She denies fever, chills or night sweats. She denies upper respiratory symptoms. She denies history of pancreatitis. She denies intolerance to greasy or fried foods. She does have a history of renal/ureteral lithiasis. She denies dysuria, frequency, urgency or hematuria. She has not noted a rash. She has no other complaints. Patient has no history of VTE nor she have any risk factors. Patient states she took 800 mg ibuprofen without improvement. Prior similar symptoms: No Recent Illness/Hospitalization: No PFSH PFS Medical History Depression Anxiety Home Medications ?Medication ?Instructions ?Recorded ?Last Taken ?Type paroxetine HCl 20 mg tablet 40 mg PO DAILY 12/02/13 Unknown History albuterol sulfate 90 mcg/actuation 1 - 2 puff inhalation Q4H PRN PRN 01/31/18 Unknown Rx aerosol inhaler (Ventolin HFA) Wheezing ##1 albuterol sulfate 2.5 mg/3 mL 2.5 mg inhalation Q4H PRN PRN Sob 02/07/19 Unknown History (0.083 %) solution for nebulization &/Or Wheezing alprazolam 0.5 mg tablet 0.5 mg PO DAILY PRN Anxiety 02/07/19 Unknown History loratadine 10 mg tablet 10 mg PO DAILY 02/07/19 Unknown History trazodone 50 mg tablet 50 mg PO QHS 04/03/19 Unknown History ibuprofen 800 mg tablet 800 mg PO TID PRN Pain/Inflammation 06/16/19 Unknown History ondansetron 4 mg disintegrating 4 mg PO Q8H PRN PRN Nausea #10 tabs 11/05/20 Unknown Rx tablet sulfamethoxazole 800 1 tab PO BID #20 tabs 11/05/20 Unknown Rx mg-trimethoprim 160 mg tablet tiotropium bromide 18 mcg capsule 18 mcg IH DAILY 11/05/20 Unknown History with inhalation device Allergy/AdvReac Type Severity Reaction Status Date / Time chlorpheniramine maleate Allergy Rash Verified 02/19/24 14:16 (From Chlor-Trimeton) morphine Allergy Itching Verified 02/19/24 14:16 strawberry AdvReac Rash Verified 02/19/24 14:16 Social History Smoking Status: Former smoker ROS ROS ED Constitutional Constitutional ED: Denies chills, fever(s), subjective or sweats ENT ENT ED: Denies ear pain, rhinorrhea or sore throat Cardiovascular Cardiovascular: Reports chest pain; Denies orthopnea, palpitations, paroxysmal nocturnal dyspnea or racing heartbeat Respiratory/Chest Respiratory/Chest: Reports cough and other Details: Patient has an occasional cough. This is not abnormal for her. ; Denies dyspnea, dyspnea on exertion, orthopnea or paroxysmal nocturnal dyspnea Gastrointestinal Gastrointestinal: Denies abdominal pain, constipation, melena, nausea or vomiting Genitourinary Genitourinary ED: Denies dysuria, hematuria or urinary frequency Musculoskeletal Musculoskeletal: Denies arthralgias, back pain or myalgias Integumentary Denies rash Neurologic Neurologic: Denies paresthesias or weakness Hematologic/Lymphatic Hematologic/Lymphatic: Reports systems reviewed and no addt'l complaints, except as documented EXAM Physical Exam Const Vital Signs: 02/19/24 14:17 02/19/24 14:50 Temperature 97.1 F L Temperature Source Temporal Pulse Rate 95 Respiratory Rate 18 Respiratory Effort Normal Non-Labored Respiratory Pattern Normal Blood Pressure 144/102 H Blood Pressure Mean 116 Pulse Ox 96 Oxygen Delivery Method Room Air Positive well nourished and well developed General Appearance ED: well developed and NAD; Negative for pallor HEENT Reports moist mucous membranes HEENT Narrative: Head is atraumatic normocephalic. Ears normal. Nares patent. Eyes PERRL and EOMs intact bilaterally General Eye ED: Negative for pale conjunctiva or scleral icterus Neck no lymphadenopathy, supple and no JVD Chest Wall inspection of chest normal and palpation of chest normal Chest Narrative: There is pain palpation over the lower left ribs. There is no crepitus or subcutaneous air noted. Resp normal respiratory effort and clear to auscultation bilaterally Cardio regular rate, regular rhythm, S1 normal heart sound, S2 normal heart sound and no murmurs GI normal to inspection, nondistended, normoactive bowel sounds, non-tender, non-distended, hepatosplenomegaly and no masses Back/Spine no CVA tenderness Extremity normal to inspection General Extremety ED: Negative for edema or tenderness General Extremity: Negative for edema Neuro oriented x3, CN's II-XII intact bilaterally and no sensory deficits noted Sensorium / Orientation: alert Psych mental status grossly normal Skin no rashes or lesions noted, no wounds and skin turgor normal General Skin Exam: Negative for jaundice or pallor MDM MDM MDM Narrative Medical decision making narrative: Patient presents with left-sided chest pain. Differential is musculoskeletal, pleurisy, pneumonia. Doubt pulmonary embolus. Wells score for PE is less than 3. Will obtain chest x-ray, blood work. Patient was medicated with IV ketorolac. Patient does have a lidocaine patch on that she purchased from the pharmacy. History & Record Review Additional record(s) reviewed:: Prior ED visit (Last ER visit was May 2021 for bloody diarrhea. Prior to that she was seen in November 2020 for nonspecific abdominal pain.) and Prior labs Lab Data Attestation: I reviewed the patient's lab results. Lab results narrative: Basic metabolic panel showed potassium 3.2 which is slightly low. Glucose was elevated 208 with normal CO2 and anion gap. CBC is normal. Labs: Laboratory Results - last 24 hr 02/19/24 14:33 WBC 9.4 RBC 4.48 Hgb 12.2 Hct 37.9 MCV 84.6 MCH 27.2 MCHC 32.2 RDW Std Deviation 42.8 RDW Coeff of Daljit 13.8 Plt Count 294 MPV 8.7 Immature Gran % (Auto) 0.400 Neut % (Auto) 63.5 Lymph % (Auto) 26.0 [place] % (Auto) 6.5 Eos % (Auto) 3.0 Baso % (Auto) 0.6 Absolute Neuts (auto) 6.0 Absolute Lymphs (auto) 2.45 Nucleated RBC % 0 Sodium 140 Potassium 3.2 L Chloride 108 H Carbon Dioxide 22.0 Anion Gap 10 BUN 20 H Creatinine 0.94 Estim Creat Clear Calc 57.71 Est GFR (MDRD) Af Amer 79 Est GFR (MDRD) Non-Af 65 BUN/Creatinine Ratio 21.2 H Glucose 208 H Calcium 9.3 Radiography Chest X-Ray - ED: 2 View and Read by ED Physician (2 view chest x-rays and pulmonary interpreted by me at 09/07/2005 is negative. Cardiac silhouette size normal. Lung parenchyma is normal. There is no evidence of effusion or pneumothorax. Hilum is normal. Osseous structures are unremarkable.) Treatment and Re-Evaluation :: The patient having a muscular component as well as a pleuritic component will treat with NSAIDs and she has no contraindication. She was instructed apply ice to the left side of her chest as well. Discharge Plan Triage Chief Complaint: Other, Pain/Inj ED Provider: Beny Rahman Dx/Rx/DC Orders Clinical Impression: Left-sided chest pain, Pleuritic chest pain Instructions: ED Chest Pain, Noncardiac Prescriptions: No Action paroxetine HCl 20 MG tablet 40 mg PO DAILY albuterol sulfate [Ventolin HFA] 1 INHALER inhaler 1 - 2 puff inhalation Q4H PRN PRN (Reason: Wheezing) Qty: 1 0RF albuterol sulfate 2.5 MG/3 ML solution for nebulization 2.5 mg inhalation Q4H PRN PRN (Reason: Sob &/Or Wheezing) alprazolam 0.5 tablet 0.5 mg PO DAILY PRN (Reason: Anxiety) loratadine 10 MG tablet 10 mg PO DAILY Patient Comments: Take 1 tablet by mouth once daily. trazodone 50 MG tablet 50 mg PO QHS ibuprofen 800 MG tablet 800 mg PO TID PRN (Reason: Pain/Inflammation) tiotropium bromide 18 MCG capsule, w/inhalation device 18 mcg IH DAILY sulfamethoxazole-trimethoprim 1 TABLET tablet 1 tab PO BID Qty: 20 0RF ondansetron 4 MG tablet 4 mg PO Q8H PRN PRN (Reason: Nausea) Qty: 10 0RF Primary Care Provider: Abdifatah Awad Referrals: Abdifatah Awad MD [Primary Care Provider] - 1 Week if not improving Activity Restrictions/Additional Instructions: 1. Take 4 Advil tablets every 8 hours for the next 5 to 7 days 2. Apply ice to your chest 6-10 times a day Print Language: Kyrgyz Disposition Disposition: Home, Self Care
[2024-02-19 14:47] LABS: Absolute Lymphocyte Count 2.45 X10^3/uL (0.83-4.51); Basophil# 0.06 X10^3/uL; Basophil% 0.6 % (0-1); Eosinophil# 0.28 X10^3/uL; Hematocrit 37.9 % (37-47); Hemoglobin 12.2 g/dL (12.0-15.0); Lymphocyte # 2.45 X10^3/ul (0.83-4.51); Mean Corp Hgb Conc 32.2 g/dL (32-36); Mean Corpuscular Hgb 27.2 pg (27.0-32.0); Mean Corpuscular Volume 84.6 fL (81-99); Mean Platelet Vol. 8.7 fl (6.2-12.0); Monocyte# 0.61 X10^3/uL; Monocyte% 6.5 % (0-10); NRBC Flagged by Analyzer 0 % (0-5); Neutrophil % 63.5 % (47-70); Platelet Count 294 K/mm3 (150-450); RBC Distribution Width CV 13.8 % (11.6-14.6); RBC Distribution Width SD 42.8 fl (35.1-43.9); Red Blood Count 4.48 M/mm3 (4.2-5.4); White Blood Count 9.4 K/mm3 (4.4-11.0)
[2024-02-19] MEDS: Ketorolac 15 MG/ML Vial IV (14:48)
[2024-02-19 14:51] VITALS: BMI 24.6
--- NOTE | 2024-02-19 14:55 | RAD_ITS ---
STUDY: X-RAY CHEST REASON FOR EXAM: Female, 58 years old. Left-sided lower chest pain TECHNIQUE: PA and lateral views of the chest. COMPARISON: Comparison is made with prior study dated June 16, 2019. FINDINGS: The lungs are clear and expanded. There is no demonstrated pleural abnormality. Normal size heart. Normal mediastinum and brandy. Normal visualized pulmonary arteries. Normal visualized aortic arch and descending thoracic aorta. There are diffuse degenerative changes of the visualized thoracic spine. Healed right rib fractures. Small hiatal hernia. RAD/Chest PA and Lateral IMPRESSION: No acute abnormality is seen. Electronically Signed: Tobias Ramon MD at 15:12 EDT ,
[2024-02-19 15:01] LABS: Anion Gap 10 (5-15); BUN 20 mg/dL (7-18); BUN/Creat Ratio 21.2 RATIO (10-20); Calcium,Total 9.3 mg/dL (8.5-10.1); Chloride 108 mmol/L (98-107); Creatinine, Serum 0.94 mg/dL (0.55-1.02); EST Glomerular Filtration Rate 65 mL/min (>60); Est Glom Filt Rate - Afr Amer 79 mL/min (>60); Estimated Creatinine Clearance 57.71 ml/min; Glucose 208 mg/dL (74-106); Potassium 3.2 mmol/L (3.5-5.1); Sodium Level 140 mmol/L (136-145)
[2024-02-19 15:12] VITALS: BP 145/83; PULSE 84; RESP 17; TEMP 36.3; O2SAT 94
== END 2024-02-19 15:18 | disposition home or self-care (01) ==
LOC: ED 15:17
PROVIDERS: Emergency Provider Emergency Medicine; PCP Family Medicine; Visit Provider Emergency Medicine
DX: R07.89 Other chest pain (principal); R07.81 Pleurodynia; Z87.891 Personal history of nicotine dependence; J45.909 Unspecified asthma, uncomplicated; Z87.442 Personal history of urinary calculi
CPT/HCPCS: 71046; 80048; 85025; 96374; 99283; A4216

== ENCOUNTER 2024-04-25 16:57 | Emergency (ER) | payer MEDICAID, SELFPAY ==
[2024-04-25 16:58] VITALS: BP 155/88; PULSE 98; RESP 18; TEMP 36.5; O2SAT 97; BMI 25.3
--- NOTE | 2024-04-25 17:35 | RAD_ITS ---
STUDY: X-RAY CHEST REASON FOR EXAM: Female, 58 years old. Hemoptysis TECHNIQUE: Frontal and lateral views of the chest. COMPARISON: 02/19/2024. FINDINGS: The lungs are clear and expanded. There is no demonstrated pleural abnormality. Normal size heart. Normal mediastinum and brandy. Normal visualized pulmonary arteries. Normal visualized aortic arch and descending thoracic aorta. Probable small hiatal hernia, stable. Normal visualized thoracic spine. Normal visualized ribs, clavicles, and shoulders. There is no demonstrated abnormality of the visualized soft tissue structures of the upper abdomen. RAD/Chest PA and Lateral IMPRESSION: No definite acute or significant abnormality seen. Electronically Signed: Shay Kessler MD at 17:49 EDT ,
[2024-04-25 17:54] LABS: Absolute Lymphocyte Count 2.63 X10^3/uL (0.83-4.51); Basophil# 0.07 X10^3/uL; Basophil% 0.8 % (0-1); Eosinophil# 0.45 X10^3/uL; Eosinophils% 5.1 % (0-5); Hematocrit 39.3 % (37-47); Hemoglobin 12.6 g/dL (12.0-15.0); Lymphocyte # 2.63 X10^3/ul (0.83-4.51); Lymphocyte % 29.9 % (19-41); Mean Corp Hgb Conc 32.1 g/dL (32-36); Mean Corpuscular Volume 84.2 fL (81-99); Mean Platelet Vol. 9.1 fl (6.2-12.0); Monocyte# 0.62 X10^3/uL; NRBC Flagged by Analyzer 0 % (0-5); Neutrophil # 5.02 X10^3/uL (2.7-7.7); Platelet Count 305 K/mm3 (150-450); RBC Distribution Width CV 13.4 % (11.6-14.6); RBC Distribution Width SD 41.2 fl (35.1-43.9); Red Blood Count 4.67 M/mm3 (4.2-5.4); White Blood Count 8.8 K/mm3 (4.4-11.0)
[2024-04-25 18:03] LABS: Anion Gap 6 (5-15); BUN 24 mg/dL (7-18); BUN/Creat Ratio 28.1 RATIO (10-20); Calcium,Total 9.8 mg/dL (8.5-10.1); Chloride 105 mmol/L (98-107); Creatinine, Serum 0.86 mg/dL (0.55-1.02); EST Glomerular Filtration Rate 73 mL/min (>60); Est Glom Filt Rate - Afr Amer 88 mL/min (>60); Glucose 170 mg/dL (74-106); Potassium 3.7 mmol/L (3.5-5.1); Sodium Level 139 mmol/L (136-145)
--- NOTE | 2024-04-25 18:42 | EDS_ITS ---
HPI History of Present Illness Chief Complaint: Nosebleed Detail of Chief Complaint: Epistaxis and hemoptysis Informant: patient and EMS (Informed me they were called to transport from urgent care. That time she had no symptoms.) Onset/Context/Timing Onset: Today (Duration of 1 hour) Context: Sudden Onset Timing: Intermittent Quality: Patient states she had blood when she coughed and also had blood from her n Location: Respiratory and nose Current Severity: Gone Maximum Severity: Moderate Worsened by: Nothing Relieved by: Not applicable Associated Symptoms Associated Symptoms: None Narrative Narrative: Patient is a 58-year-old woman. She presents from urgent care for evaluation of epistaxis and hemoptysis. Patient reports the hemoptysis started before the nosebleed. There is no history of trauma. She denies shortness of breath. Denies history of VTE. Denies leg pain, swelling discoloration. She is not on estrogen therapy. She denies night sweats or weight loss. She denies cough or shortness of breath. She is not on an anticoagulant. I was informed by nursing staff that the paramedics question why she required transport by ambulance. They reported that she needed to be evaluated. Prior similar symptoms: No Recent Illness/Hospitalization: No PFSH PFS Medical History Depression Anxiety Home Medications ?Medication ?Instructions ?Recorded ?Last Taken ?Type paroxetine HCl 20 mg tablet 40 mg PO DAILY 12/02/13 Unknown History albuterol sulfate 90 mcg/actuation 1 - 2 puff inhalation Q4H PRN PRN 01/31/18 Unknown Rx aerosol inhaler (Ventolin HFA) Wheezing ##1 albuterol sulfate 2.5 mg/3 mL 2.5 mg inhalation Q4H PRN PRN Sob 02/07/19 Unknown History (0.083 %) solution for nebulization &/Or Wheezing alprazolam 0.5 mg tablet 0.5 mg PO DAILY PRN Anxiety 02/07/19 Unknown History loratadine 10 mg tablet 10 mg PO DAILY 02/07/19 Unknown History trazodone 50 mg tablet 50 mg PO QHS 04/03/19 Unknown History ibuprofen 800 mg tablet 800 mg PO TID PRN Pain/Inflammation 06/16/19 Unknown History ondansetron 4 mg disintegrating 4 mg PO Q8H PRN PRN Nausea #10 tabs 11/05/20 Unknown Rx tablet sulfamethoxazole 800 1 tab PO BID #20 tabs 11/05/20 Unknown Rx mg-trimethoprim 160 mg tablet tiotropium bromide 18 mcg capsule 18 mcg IH DAILY 11/05/20 Unknown History with inhalation device Allergy/AdvReac Type Severity Reaction Status Date / Time chlorpheniramine maleate Allergy Rash Verified 02/19/24 14:16 (From Chlor-Trimeton) morphine Allergy Itching Verified 02/19/24 14:16 strawberry AdvReac Rash Verified 02/19/24 14:16 Social History Smoking Status: Former smoker ROS ROS ED Constitutional Constitutional ED: Denies chills, fever(s), subjective or sweats Eyes Eyes: Denies blurry vision, change in vision or diplopia ENT ENT ED: Reports other Details: Epistaxis uncertain site of origin ; Denies ear pain, rhinorrhea or sore throat Cardiovascular Cardiovascular: Denies chest pain, orthopnea, palpitations, paroxysmal nocturnal dyspnea or racing heartbeat Respiratory/Chest Respiratory/Chest: Reports cough and other Details: Yoan hemoptysis ; Denies dyspnea, dyspnea on exertion, orthopnea or paroxysmal nocturnal dyspnea Gastrointestinal Gastrointestinal: Denies abdominal pain, nausea or vomiting Hematologic/Lymphatic Hematologic/Lymphatic: Denies easy bleeding or easy bruising EXAM Physical Exam Const Vital Signs: 04/25/24 16:58 Temperature 97.7 F L Temperature Source Oral Pulse Rate 98 Respiratory Rate 18 Blood Pressure 155/88 H Blood Pressure Mean 110 Pulse Ox 97 Oxygen Delivery Method Room Air Positive well nourished and well developed Constitutional Narrative: Blood pressure is slightly elevated 155/88. Patient is on no antihypertensive meds. General Appearance ED: well developed and NAD; Negative for pallor HEENT Reports moist mucous membranes HEENT Narrative: Head is atraumatic, cephalic. Nares patent. There is no evidence of blood anterior or posteriorly. Posterior pharynx is normal. Uvula is midline. There is no erythema or exudate. Eyes PERRL and EOMs intact bilaterally General Eye ED: Negative for pale conjunctiva or scleral icterus Neck no lymphadenopathy, supple and no JVD Chest Wall inspection of chest normal and palpation of chest normal Resp normal respiratory effort and clear to auscultation bilaterally Cardio regular rate, regular rhythm, S1 normal heart sound, S2 normal heart sound and no murmurs GI normal to inspection, nondistended, normoactive bowel sounds, non-tender, non- distended and no masses; Negative for hepatosplenomegaly Extremity Extremity Narrative: There is no swelling, asymmetry, discoloration, ligamentous tension, palp cord sounds on the distribution deep venous system. Neuro oriented x3, CN's II-XII intact bilaterally and no sensory deficits noted Sensorium / Orientation: alert Psych mental status grossly normal Skin no rashes or lesions noted, no wounds and skin turgor normal General Skin Exam: elasticity normal; Negative for jaundice or pallor MDM MDM MDM Narrative Medical decision making narrative: With reported hemoptysis will obtain a chest x-ray to assess for pneumonia. CBC to assess platelet count. Electrolyte panel was obtained to assess renal function and assess BUN to creatinine ratio. On exam there is no evidence of recent or active nosebleed. Lab Data Attestation: I reviewed the patient's lab results. Lab results narrative: White count is normal. Differential is normal. H&H and platelet count are normal. Basic metabolic panel reveals slight elevation of glucose of 170 with a normal CO2 anion gap. There is no history of diabetes. Labs: Laboratory Results - last 24 hr 04/25/24 17:28 WBC 8.8 RBC 4.67 Hgb 12.6 Hct 39.3 MCV 84.2 MCH 27.0 MCHC 32.1 RDW Std Deviation 41.2 RDW Coeff of Daljit 13.4 Plt Count 305 MPV 9.1 Immature Gran % (Auto) 0.200 Neut % (Auto) 57.0 Lymph % (Auto) 29.9 [place] % (Auto) 7.0 Eos % (Auto) 5.1 H Baso % (Auto) 0.8 Absolute Neuts (auto) 5.0 Absolute Lymphs (auto) 2.63 Nucleated RBC % 0 Sodium 139 Potassium 3.7 Chloride 105 Carbon Dioxide 28.0 Anion Gap 6 BUN 24 H Creatinine 0.86 Estim Creat Clear Calc 68.70 Est GFR (MDRD) Af Amer 88 Est GFR (MDRD) Non-Af 73 BUN/Creatinine Ratio 28.1 H Glucose 170 H Calcium 9.8 Radiography Chest X-Ray - ED: 2 View and Read by ED Physician (2 view chest x-ray was independent reviewed interpreted by me is negative. Cardiac silhouette size normal. Lung parenchyma normal. Hilum is normal. Osseous trucks is unremarkable.) Diagnostic Testing: Clinical Impression(s) from Imaging Studies Chest X-Ray 04/25/24 17:35 IMPRESSION: No definite acute or significant abnormality seen. Electronically Signed: Shay Kessler MD at 17:49 EDT , Treatment and Re-Evaluation :: Patient was informed of results. Sensors no objective findings we will discharge to home to follow-up with her doctor. She is to return if this reoccurs. She was observed until 1847. Discharge Plan Triage Chief Complaint: Nosebleed ED Provider: Beny Rahman Dx/Rx/DC Orders Clinical Impression: Cough with hemoptysis, Nondiabetic hyperglycemia, Elevated blood-pressure reading, without diagnosis of hypertension Instructions: ED Hemoptysis, ED Hypertension, To Be Confirmed, ED Hyperglycemia New Poss Diabetes Prescriptions: No Action paroxetine HCl 20 MG tablet 40 mg PO DAILY albuterol sulfate [Ventolin HFA] 1 INHALER inhaler 1 - 2 puff inhalation Q4H PRN PRN (Reason: Wheezing) Qty: 1 0RF albuterol sulfate 2.5 MG/3 ML solution for nebulization 2.5 mg inhalation Q4H PRN PRN (Reason: Sob &/Or Wheezing) alprazolam 0.5 tablet 0.5 mg PO DAILY PRN (Reason: Anxiety) loratadine 10 MG tablet 10 mg PO DAILY Patient Comments: Take 1 tablet by mouth once daily. trazodone 50 MG tablet 50 mg PO QHS ibuprofen 800 MG tablet 800 mg PO TID PRN (Reason: Pain/Inflammation) tiotropium bromide 18 MCG capsule, w/inhalation device 18 mcg IH DAILY sulfamethoxazole-trimethoprim 1 TABLET tablet 1 tab PO BID Qty: 20 0RF ondansetron 4 MG tablet 4 mg PO Q8H PRN PRN (Reason: Nausea) Qty: 10 0RF Primary Care Provider: Abdifatah Awad Referrals: Abdifatah Awad MD [Primary Care Provider] - 1 Week Print Language: Bangladeshi Disposition Disposition: Home, Self Care
[2024-04-25 18:55] VITALS: BP 159/105; PULSE 91; RESP 18; TEMP 36.6; O2SAT 95
== END 2024-04-25 18:59 | disposition home or self-care (01) ==
PROVIDERS: Emergency Provider Emergency Medicine; PCP Family Medicine; Visit Provider Emergency Medicine
DX: R04.0 Epistaxis (principal); R05.9 Cough, unspecified; Z87.891 Personal history of nicotine dependence; R04.2 Hemoptysis; R03.0 Elevated blood-pressure reading, without diagnosis of hypertension; R73.9 Hyperglycemia, unspecified
CPT/HCPCS: 71046; 80048; 85025; 99283

== ENCOUNTER → 2024-07-14 | Outpatient (CLI) | payer MEDICAID, SELFPAY ==
--- NOTE | 2024-07-14 15:00 | MRI_ITS ---
STUDY: MRI CERVICAL SPINE WITHOUT CONTRAST REASON FOR EXAM: Female, 58 years old. SPINAL STENOSIS TECHNIQUE: Standardized fat and water weighted pulse sequences were obtained in the sagittal and axial planes. COMPARISON: None FINDINGS: Normal foramen magnum and brainstem-cervical cord junction. Normal craniovertebral junction. Normal anterior atlantoaxial articulation. Normal odontoid process. Normal cervical lordosis. Normal vertebral bodies and posterior osseous elements. C2-3: Normal endplates. Normal disc height, signal and morphology. Normal central canal and intervertebral neural foramina. C3-4: Normal disc space height minor bulging disc osteophyte complex with tiny left foraminal disc/osteophyte protrusion. Normal central canal. Moderate to severe left neural foraminal stenosis C4-5: Normal endplates. Narrowed disc space and small central disc protrusion. Mild narrowing of the central canal impinging upon the ventral surface of the cord. C5-6: Narrowed disc space and minor bulging of the disc. Normal central canal. Moderate right neural foraminal stenosis and mild narrowing on the left. C6-7: Normal endplates. Normal disc height, signal and minimal bulging of the disc.. Normal central canal and intervertebral neural foramina. C7-T1: Normal endplates. Normal disc height, signal and morphology. Normal central canal and intervertebral neural foramina. There is increased intramedullary signal intensity noted within the cord at C5-6 most likely representing gliosis or myelomalacia secondary to old trauma or chronic impingement Normal visualized soft tissue structures. MRI/Spine Cervical (Routine) IMPRESSION: No evidence for acute fracture or other significant bony pathology. Mild spondylosis and multilevel spinal stenosis secondary to disc disease and bony hypertrophy with mild cord impingement at C4-5. There is also mild gliosis or myelomalacia in the cord at C5-6 most likely due to old trauma or chronic impingement Electronically Signed: Oren Interiano MD at 22:16 EST ,
--- NOTE | 2024-07-14 15:00 | MRI_ITS ---
STUDY: MRI BRAIN WITHOUT CONTRAST REASON FOR EXAM: Female, 58 years old. HEADACHES TECHNIQUE: Standardized multiplanar fat and water weighted pulse sequences were obtained. COMPARISON: CT brain April 24, 2019 FINDINGS: Normal size of the ventricles and extra-axial spaces for the patient''s age. There are a couple of tiny nonspecific white matter lesions most likely representing chronic small vessel ischemic changes in patient of this age without mass effect or restricted diffusion. Normal bilateral basal ganglia. Normal thalami. There is no extra-axial fluid accumulation. On the gradient echo weighted imaging sequence there is apparent signal drop-off in the inferior frontal lobes which may be due to old hemorrhagic contusions although this could be artifactual. Clinical correlation is recommended Normal flow voids within the major intracranial circulation suggesting patency by spin echo criteria. Empty sella deformity of uncertain significance. Normal, infundibular stalk, optic chiasm and hypothalamus. Normal tectal plate and pineal gland. Normal midbrain, bella and medulla. Normal cerebellum. Normal basal cisterns. Normal bilateral temporal bones. Normal bilateral internal auditory canals. No demonstrated orbital abnormality, within the constraints of a routine brain study. Minor mucosal thickening of the right maxillary and bilateral ethmoid sinuses. Normal calvarium and skull base. Normal visualized soft tissue structures. Normal visualized upper cervical spine. MRI/Brain without Contrast IMPRESSION: Minor nonspecific white matter disease without evidence for acute infarct Incidental finding of empty sella deformity and changes which may be consistent with old posttraumatic hemorrhagic contusions in the inferior frontal lobes. Clinical correlation recommended Electronically Signed: Oren Interiano MD at 16:25 EST Reading Location ID and State: [facility] / [place] Tel , Service support ,
== END | disposition home or self-care (01) ==
PROVIDERS: PCP Family Medicine; Referring Provider Physician Assistant Medical; Visit Provider Physician Assistant Medical
DX: R51.9 Headache, unspecified (principal); M48.02 Spinal stenosis, cervical region
CPT/HCPCS: 70551; 72141

== ENCOUNTER 2025-07-28 14:58 | Emergency (ER) | payer MEDICAID, SELFPAY ==
[2025-07-28 14:58] VITALS: BP 133/78; PULSE 94; RESP 16; TEMP 36.6; O2SAT 96
[2025-07-28 15:15] VITALS: BMI 24.5
[2025-07-28] MEDS: Ketorolac 30 MG/ML Syringe IM (15:46)
[2025-07-28] MEDS: Lidocaine 5% Patch 1 PATCH TOPICAL (15:46)
--- NOTE | 2025-07-28 15:48 | ED.VIS.BACK ---
HPI History of Present Illness Chief Complaint: Back Narrative Narrative: Patient is a 59-year-old female presenting to the emergency department for low back pain that started yesterday. Patient has a past medical history of sciatica, asthma and diabetes. She states that she just recently started a job as a [employer] and has been on her feet a lot. She states that she does not feel like she is done any heavy lifting. She denies any trauma or specific injury to her back. States that she was sitting at the salon for about 2 hours last evening after work when she tried to stand up and noticed a pull in her back. She states it mainly hurts on the left side but is on both. She has been taking Flexeril and ibuprofen this morning and Backaid this afternoon around 1 PM. She denies any numbness or weakness in her legs. Denies any saddle anesthesia, urinary or bowel incontinence or retention, fevers, chills, weight loss or cancer diagnosis. Denies IV drug use. [facility] Medical History Depression Anxiety Home Medications Medication Instructions Recorded Last Taken Type paroxetine HCl 20 mg tablet 40 mg PO DAILY 12/02/13 Unknown History albuterol sulfate 90 mcg/actuation 1 - 2 puff inhalation Q4H PRN PRN 01/31/18 Unknown Rx aerosol inhaler (Ventolin HFA) Wheezing ##1 albuterol sulfate 2.5 mg/3 mL 2.5 mg inhalation Q4H PRN PRN Sob 02/07/19 Unknown History (0.083 %) solution for nebulization &/Or Wheezing alprazolam 0.5 mg tablet 0.5 mg PO DAILY PRN Anxiety 02/07/19 Unknown History loratadine 10 mg tablet 10 mg PO DAILY 02/07/19 Unknown History trazodone 50 mg tablet 50 mg PO QHS 04/03/19 Unknown History ibuprofen 800 mg tablet 800 mg PO TID PRN Pain/Inflammation 06/16/19 Unknown History ondansetron 4 mg disintegrating 4 mg PO Q8H PRN PRN Nausea #10 tabs 11/05/20 Unknown Rx tablet sulfamethoxazole 800 1 tab PO BID #20 tabs 11/05/20 Unknown Rx mg-trimethoprim 160 mg tablet tiotropium bromide 18 mcg capsule 18 mcg IH DAILY 11/05/20 Unknown History with inhalation device cyclobenzaprine 5 mg tablet 5 mg PO TID PRN muscle spasm #14 07/28/25 Unknown Rx tabs lidocaine 5 % topical patch 1 patch topical DAILY #15 ea 07/28/25 Unknown Rx (Lidoderm) Allergy/AdvReac Type Severity Reaction Status Date / Time cat dander Allergy edema Verified 07/28/25 15:00 chlorpheniramine maleate Allergy Rash Verified 07/28/25 15:00 (From Chlor-Trimeton) morphine Allergy Itching Verified 07/28/25 15:00 strawberry AdvReac Rash Verified 07/28/25 15:00 Social History Smoking Status: Former smoker ROS ROS ED ROS Narrative See HPI EXAM Physical Exam Narrative Exam Narrative: Vital signs: Reviewed General: Alert and orientedx3. No acute distress HEENT: Head is normocephalic and atraumatic, sinuses nontender, pupils equal round and reactive. Nares are patent. Oropharynx and throat exams normal. Neck: Supple without lymphadenopathy nontender Cardiovascular: Regular rate and rhythm, no murmurs. No rubs or gallops. Normal S1 and S2 Respiratory: Clear to auscultation bilaterally. No wheezes, rales, rhonchi Abdominal: Soft and nontender. Normal bowel sounds. No guarding or rebound. Nonsurgical abdomen Extremities: No midline cervical, thoracic or lumbar spinal tenderness to palpation. No step-offs or deformities. There is left and right paraspinal muscular tenderness to palpation no erythema or rashes to the back. Normal 5 out of 5 strength in bilateral lower extremities. Normal sensation in bilateral lower extremities. Skin: No rash or redness. Neurological: Cranial nerves II through XII are grossly intact. Normal strength and sensation. Normal cerebellar function The rest of the physical exam is unremarkable Const Vital Signs: 07/28/25 14:58 07/28/25 18:58 Temperature 97.8 F 97.8 F Temperature Source Oral Pulse Rate 94 94 Respiratory Rate 16 16 Blood Pressure 133/78 H 133/78 H Blood Pressure Mean 96 96 Pulse Ox 96 96 Oxygen Delivery Method Room Air MDM MDM MDM Narrative Medical decision making narrative: Patient is a 59-year-old female presenting to the emergency department for back pain. Patient was seen and examined. Vitals are stable. Patient resting in bed comfortably in no acute distress. Patient has no midline tenderness on back exam. No falls or trauma to the back. No red flag back pain signs. I do not think patient needs any imaging of her back. History and physical exam are consistent with musculoskeletal. She was given Toradol, Flexeril and a Lidoderm patch. Patient was reevaluated and is still having fairly significant pain. She was given a Percocet. Patient reevaluated after this and was able to ambulate without difficulty. States that her pain is much improved. Patient was prescribed Flexeril, Lidoderm patches and instructed to take Motrin [id number] for the next 4 to 5 days for her symptoms. I discussed return precautions with her which included back pain is not controlled with the measures discussed with her and prescribed to her for home or red flag back pain signs that were discussed in HPI. Patient discharged from the Emergency Department. I do not feel that the patient's evaluation reveals any acute reason for admission at this time. I instructed them to either follow-up with their primary care physician or promptly return to the Emergency Department for reevaluation should symptoms worsen or new symptoms develop. I explained what symptoms would indicate the need to return to the emergency department. Shared decision making was used. The patient voiced understanding of the treatment plan and is agreeable with it. Clinical impression Back pain History & Record Review Discussion w/independent historian: Patient and Family Discharge Plan Triage Chief Complaint: Back ED Provider: Janeth Arroyo Dx/Rx/DC Orders Clinical Impression: Back pain Instructions: ED Back Care Tips, ED Back Sprain/Strain Prescriptions: New lidocaine [Lidoderm] 5 % adhesive patch,medicated 1 patch topical DAILY Qty: 15 0RF Rx Instructions: leave on most painful area for up to 12 hrs cyclobenzaprine 5 mg tablet 5 mg PO TID PRN (Reason: muscle spasm) Qty: 14 0RF No Action paroxetine HCl 20 MG tablet 40 mg PO DAILY albuterol sulfate [Ventolin HFA] 1 INHALER inhaler 1 - 2 puff inhalation Q4H PRN PRN (Reason: Wheezing) Qty: 1 0RF albuterol sulfate 2.5 MG/3 ML solution for nebulization 2.5 mg inhalation Q4H PRN PRN (Reason: Sob &/Or Wheezing) alprazolam 0.5 tablet 0.5 mg PO DAILY PRN (Reason: Anxiety) loratadine 10 MG tablet 10 mg PO DAILY Patient Comments: Take 1 tablet by mouth once daily. trazodone 50 MG tablet 50 mg PO QHS ibuprofen 800 MG tablet 800 mg PO TID PRN (Reason: Pain/Inflammation) tiotropium bromide 18 MCG capsule, w/inhalation device 18 mcg IH DAILY sulfamethoxazole-trimethoprim 1 TABLET tablet 1 tab PO BID Qty: 20 0RF ondansetron 4 MG tablet 4 mg PO Q8H PRN PRN (Reason: Nausea) Qty: 10 0RF Primary Care Provider: Abdifatah Awad Referrals: Abdifatah Awad MD [Primary Care Provider, Medical] - As soon as possible Activity Restrictions/Additional Instructions: Take Motrin every 8 hours for pain and inflammation. I would take this scheduled over the next 4 to 5 days to help with the back pain. You can apply the Lidoderm patch to your lower back and leave on for 12 hours at a time. Make sure to remove it after this time period. You can take the Flexeril every 8 hours for muscle spasms however it will make you tired. Do not take prior to driving or operating heavy machinery. It can make you lightheaded and dizzy as well. Your evaluation in the Emergency Department did not reveal any acute reason for admission. However, I want to emphasize that you may be early in the course of a disease process or illness even if it is not present. For this reason you should follow-up within 24 hours for reevaluation with either your primary care physician or if necessary back here in the Emergency Department. You should return to the Emergency Department immediately if your symptoms worsen or new symptoms develop. Print Language: Italian Disposition Disposition: Home, Self Care Discharge Date/Time: 07/28/25 18:59
[2025-07-28] MEDS: HYDROcodone Bitartrate/Apap 5/325 Tablet PO (17:03)
[2025-07-28 18:58] VITALS: BP 133/78; PULSE 94; RESP 16; TEMP 36.6; O2SAT 96
== END 2025-07-28 18:59 | disposition home or self-care (01) ==
PROVIDERS: Emergency Provider Student in an Organized Health Care Education/Training Program; PCP Family Medicine; Visit Provider Student in an Organized Health Care Education/Training Program
DX: M54.50 Low back pain, unspecified (principal); E11.9 Type 2 diabetes mellitus without complications; J45.909 Unspecified asthma, uncomplicated; F41.9 Anxiety disorder, unspecified; F32.A Depression, unspecified; Z79.51 Long term (current) use of inhaled steroids; Z79.899 Other long term (current) drug therapy; Z87.891 Personal history of nicotine dependence
CPT/HCPCS: 96372; 99284; A4216